=== PATIENT | male | born 1955 | race Caucasian/White ===

== ENCOUNTER 2021-08-31 07:28 | Observation (INO) | payer MEDICARE, MEDICAID ==
[2021-08-31] MEDS ORDERED: Ketorolac 30 MG/ML SDV IVPUSH ONE (08:01)
[2021-08-31] MEDS ORDERED: Ondansetron 4 MG/2 ML SDV IVPUSH ONE (08:01)
[2021-08-31] MEDS: Sodium Chloride 0.9% 10 ML Syringe FLUSH PRN ×5 (08:06→21:56)
--- NOTE | 2021-08-31 08:13 | EDM.PDOC ---
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[facility] and shifted weight to his other leg he then drove to [address] [place] [id number] in [place], pain inc'd to the point that he had to have someone else read the scripture and had to sit down during the sermon pain is from his L hip to his L ankle, most pain is in L hip and and knee altho has not pain with ROM no swell/red/warm, no f/c/d did have n/v in middle of night which has persisted, he thinks it is d/t the pain, he lay on the floor in bathroom during night before walking back to his bed no children, lives with who is at home on hospice for breast CA dx 8y ago, now with meds to back and lung on no regular meds, took ASA x 2 yesterday has had COVID vax Left Leg Pain Score (Numeric/FACES): 8 - Related Data Allergies Allergy/AdvReac Type Severity Reaction Status Date / Time No Known Allergies Allergy Verified 08/31/21 07:38 Home Meds: Home Meds Aspirin 162 mg PO DAILY PRN 08/31/21 [History] Past Medical History HEENT History: Reports: Impaired Vision Cardiovascular History: Reports: Blood Clots/VTE/DVT, Other (See Below) Other Cardiovascular History: DVT LEFT CALF 4-5 YEARS AGO (2020) Respiratory History: Reports: None Gastrointestinal History: Reports: None Genitourinary History: Reports: None Musculoskeletal History: Reports: None Neurological History: Reports: None Psychiatric History: Reports: None Endocrine/Metabolic History: Reports: None Oncologic (Cancer) History: Reports: None Dermatologic History: Reports: None - Past Surgical History Head Surgeries/Procedures: Reports: None HEENT Surgical History: Reports: None Respiratory Surgical History: Reports: None GI Surgical History: Reports: None Male Surgical History: Reports: None Endocrine Surgical History: Reports: None Neurological Surgical History: Reports: None Musculoskeletal Surgical History: Reports: None Oncologic Surgical History: Reports: None Dermatological Surgical History: Reports: None Social & Family History - Tobacco Use Tobacco Use Status *Q: Never Tobacco User - Caffeine Use Caffeine Use: Reports: Coffee - Recreational Drug Use Recreational Drug Use: No Review of Systems - Review of Systems Review Of Systems: See Below Constitutional: Reports: No Symptoms Eyes: Reports: No Symptoms Ears: Reports: No Symptoms Nose: Reports: No Symptoms Mouth/Throat: Reports: No Symptoms Respiratory: Reports: No Symptoms Cardiovascular: Reports: No Symptoms GI/Abdominal: Reports: Nausea, Vomiting Genitourinary: Reports: No Symptoms Musculoskeletal: Reports: Leg Pain Skin: Reports: No Symptoms Neurological: Reports: No Symptoms Psychiatric: Reports: No Symptoms ED EXAM, GENERAL - Physical Exam Exam: See Below Exam Limited By: No Limitations General Appearance: Alert, WD/WN, No Apparent Distress, Other (lying comfortably on his L side, cooperative, normal speech) Eye Exam: Bilateral Eye: EOMI, PERRL Ears: Hearing Grossly Normal Nose: Normal Inspection Throat/Mouth: Normal Inspection, Normal Lips, Normal Voice, No Airway Compromise Head: Atraumatic, Normocephalic Neck: Normal Inspection, Supple, Non-Tender, Full Range of Motion. No: Lymphadenopathy (R), Lymphadenopathy (L) Respiratory/Chest: No Respiratory Distress, Lungs Clear, Normal Breath Sounds, No Accessory Muscle Use Cardiovascular: Regular Rate, Rhythm, No Edema, No Murmur GI/Abdominal: Soft, Non-Tender, No Distention Back Exam: Normal Inspection, Full Range of Motion. No: CVA Tenderness (R), CVA Tenderness (L) Extremities: Normal Inspection, Normal Range of Motion, Non-Tender, No Pedal Edema, Other (no point tender LLE, spontaneous flex/ext left knee/hip without discomfort, no edema or swell b/l, no cords, skin with no red/warm) Neurological: Alert, Oriented, CN II-XII Intact, Normal Cognition, No M otor/Sensory Deficits Psychiatric: Normal Affect, Normal Mood Skin Exam: Warm, Dry, Intact, Normal Color, No Rash Lymphatic: No Adenopathy #1 Interpretation EKG Date: 08/31/21 Time: 08:26 Rate (Beats/Min): 72 P-Wave: Present QRS: Normal ST-T: Normal QT: Normal (LAD -38, baseline artifact, no acute ST/ischemic change) Course - Vital Signs Last Recorded V/S: Last Vital Signs Temp 35.6 C L 08/31/21 07:47 Pulse 68 08/31/21 10:55 Resp 16 08/31/21 10:55 BP 102/59 L 08/31/21 10:55 Pulse Ox 96 08/31/21 10:55 - Orders/Labs/Meds Orders: Active Orders 24 hr Category Date Time Status Sodium Chloride 0.9% [Normal Saline] 1,000 ml Med 08/31/21 08:15 Active IV ASDIRECTED Sodium Chloride 0.9% [Normal Saline] 1,000 ml Med 08/31/21 12:15 Active IV ASDIRECTED Sodium Chloride 0.9% [Saline Flush] Med 08/31/21 08:44 Active 10 ml FLUSH ASDIRECTED PRN EKG 12 Lead [EK] Routine Ther 08/31/21 08:01 Ordered Medication Orders Sodium Chloride (Normal Saline) 1,000 mls @ 999 mls/hr IV ASDIRECTED JEOVANY Last Admin: 08/31/21 08:11 Dose: 999 mls/hr Documented by: DELIA Sodium Chloride (Normal Saline) 1,000 mls @ 999 mls/hr IV ASDIRECTED JEOVANY Last Admin: 08/31/21 12:38 Dose: 999 mls/hr Documented by: DELIA Sodium Chloride (Sodium Chloride 0.9% 10 Ml Syringe) 10 ml FLUSH ASDIRECTED PRN PRN Reason: Keep Vein Open Last Admin: 08/31/21 09:20 Dose: 10 ml Documented by: Admin: 08/31/21 08:12 Dose: 10 ml Documented by: Admin: 08/31/21 08:06 Dose: 10 ml Documented by: DELIA Labs: Laboratory Tests 08/31/21 08/31/21 08/31/21 Range/Units 08:20 08:20 08:22 WBC 8.5 (3.2-10.1) x10-3/uL RBC 4.78 (3.90-5.90) x10(6)uL Hgb 14.7 (12.9-17.7) g/dL Hct 43.4 (38.3-50.1) % MCV 90.8 (80.8-98.7) fL MCH 30.8 (27.0-33.3) pg MCHC 33.9 (28.7-35.3) g/dL RDW 12.9 (12.4-15.0) % Plt Count 210 (117-477) x10(3)uL MPV 8.9 (6.7-11.0) fL Add Manual Diff Yes Neutrophils % (Manual) 85 H (46-82) % Lymphocytes % (Manual) 8 L (13-37) % Monocytes % (Manual) 7 (4-12) % PT 10.6 (9.0-11.1) sec INR 0.98 L (1.00-1.24) APTT 22.7 L (24.4-33.2) SECONDS D-Dimer, Quantitative (0.0-0.59) mg/LFEU Sodium (135-145) mmol/L Potassium (3.5-5.3) mmol/L Chloride (100-110) mmol/L Carbon Dioxide (21-32) mmol/L BUN (7-18) mg/dL Creatinine (0.70-1.30) mg/dL Est Cr Clr Drug Dosing mL/min Estimated GFR (MDRD) (>60) BUN/Creatinine Ratio (9-20) Glucose (80-116) mg/dL Hemoglobin A1c 5.8 H (<5.7) % Calcium (8.6-10.2) mg/dL Total Bilirubin (0.1-1.3) mg/dL AST (5-25) IU/L ALT (12-36) U/L Alkaline Phosphatase (56-112) IU/L Creatine Kinase (60-160) IU/L Troponin I (4.0-60.3) pg/mL C-Reactive Protein (0.5-0.9) mg/dL Total Protein (6.0-8.0) g/dL Albumin (3.2-4.6) g/dL Globulin g/dL Albumin/Globulin Ratio Urine Color (YELLOW) Urine Appearance (CLEAR) Urine pH (5.0-6.5) Ur Specific [place] (1.010-1.025) Urine Protein (NEGATIVE) mg/dL Urine Glucose (UA) (NORMAL) mg/dL Urine Ketones (NEGATIVE) mg/dL Urine Occult Blood (NEGATIVE) Urine Nitrite (NEGATIVE) Urine Bilirubin (NEGATIVE) Urine Urobilinogen (NEGATIVE) mg/dL Ur Leukocyte Esterase (NEGATIVE) Urine RBC (0-5) Urine WBC (0-5) Ur Squamous Epith Cells (NS,R,O) Urine Bacteria (NS) SARS-CoV-2 RNA (GELY) (NEGATIVE) 08/31/21 08/31/21 08/31/21 Range/Units 08:22 08:22 08:22 WBC (3.2-10.1) x10-3/uL RBC (3.90-5.90) x10(6)uL Hgb (12.9-17.7) g/dL Hct (38.3-50.1) % MCV (80.8-98.7) fL MCH (27.0-33.3) pg MCHC (28.7-35.3) g/dL RDW (12.4-15.0) % Plt Count (117-477) x10(3)uL MPV (6.7-11.0) fL Add Manual Diff Neutrophils % (Manual) (46-82) % Lymphocytes % (Manual) (13-37) % Monocytes % (Manual) (4-12) % PT (9.0-11.1) sec INR (1.00-1.24) APTT (24.4-33.2) SECONDS D-Dimer, Quantitative 0.72 H (0.0-0.59) mg/LFEU Sodium 142 (135-145) mmol/L Potassium 4.2 (3.5-5.3) mmol/L Chloride 106 (100-110) mmol/L Carbon Dioxide 25 (21-32) mmol/L BUN 19 H (7-18) mg/dL Creatinine 1.2 (0.70-1.30) mg/dL Est Cr Clr Drug Dosing 65.56 mL/min Estimated GFR (MDRD) > 60 (>60) BUN/Creatinine Ratio 15.8 (9-20) Glucose 176 H (80-116) mg/dL Hemoglobin A1c (<5.7) % Calcium 8.7 (8.6-10.2) mg/dL Total Bilirubin 0.7 (0.1-1.3) mg/dL AST 15 (5-25) IU/L ALT 23 (12-36) U/L Alkaline Phosphatase 46 L (56-112) IU/L Creatine Kinase 81 (60-160) IU/L Troponin I 4.1 (4.0-60.3) pg/mL C-Reactive Protein < 0.2 L (0.5-0.9) mg/dL Total Protein 6.7 (6.0-8.0) g/dL Albumin 3.4 (3.2-4.6) g/dL Globulin 3.3 g/dL Albumin/Globulin Ratio 1.0 Urine Color (YELLOW) Urine Appearance (CLEAR) Urine pH (5.0-6.5) Ur Specific [place] (1.010-1.025) Urine Protein (NEGATIVE) mg/dL Urine Glucose (UA) (NORMAL) mg/dL Urine Ketones (NEGATIVE) mg/dL Urine Occult Blood (NEGATIVE) Urine Nitrite (NEGATIVE) Urine Bilirubin (NEGATIVE) Urine Urobilinogen (NEGATIVE) mg/dL Ur Leukocyte Esterase (NEGATIVE) Urine RBC (0-5) Urine WBC (0-5) Ur Squamous Epith Cells (NS,R,O) Urine Bacteria (NS) SARS-CoV-2 RNA (GELY) (NEGATIVE) 08/31/21 08/31/21 Range/Units 09:28 14:58 WBC (3.2-10.1) x10-3/uL RBC (3.90-5.90) x10(6)uL Hgb (12.9-17.7) g/dL Hct (38.3-50.1) % MCV (80.8-98.7) fL MCH (27.0-33.3) pg MCHC (28.7-35.3) g/dL RDW (12.4-15.0) % Plt Count (117-477) x10(3)uL MPV (6.7-11.0) fL Add Manual Diff Neutrophils % (Manual) (46-82) % Lymphocytes % (Manual) (13-37) % Monocytes % (Manual) (4-12) % PT (9.0-11.1) sec INR (1.00-1.24) APTT (24.4-33.2) SECONDS D-Dimer, Quantitative (0.0-0.59) mg/LFEU Sodium (135-145) mmol/L Potassium (3.5-5.3) mmol/L Chloride (100-110) mmol/L Carbon Dioxide (21-32) mmol/L BUN (7-18) mg/dL Creatinine (0.70-1.30) mg/dL Est Cr Clr Drug Dosing mL/min Estimated GFR (MDRD) (>60) BUN/Creatinine Ratio (9-20) Glucose (80-116) mg/dL Hemoglobin A1c (<5.7) % Calcium (8.6-10.2) mg/dL Total Bilirubin (0.1-1.3) mg/dL AST (5-25) IU/L ALT (12-36) U/L Alkaline Phosphatase (56-112) IU/L Creatine Kinase (60-160) IU/L Troponin I (4.0-60.3) pg/mL C-Reactive Protein (0.5-0.9) mg/dL Total Protein (6.0-8.0) g/dL Albumin (3.2-4.6) g/dL Globulin g/dL Albumin/Globulin Ratio Urine Color Yellow (YELLOW) Urine Appearance Slightly cloudy (CLEAR) Urine pH 6.0 (5.0-6.5) Ur Specific [place] 1.015 (1.010-1.025) Urine Protein Negative (NEGATIVE) mg/dL Urine Glucose (UA) Normal (NORMAL) mg/dL Urine Ketones 50 H (NEGATIVE) mg/dL Urine Occult Blood Trace (NEGATIVE) Urine Nitrite Negative (NEGATIVE) Urine Bilirubin Negative (NEGATIVE) Urine Urobilinogen Normal (NEGATIVE) mg/dL Ur Leukocyte Esterase Negative (NEGATIVE) Urine RBC 0-5 (0-5) Urine WBC 0-5 (0-5) Ur Squamous Epith Cells Rare (NS,R,O) Urine Bacteria Rare H (NS) SARS-CoV-2 RNA (GELY) Negative (NEGATIVE) Meds: Medications Generic Name Dose Route Start Last Admin Trade Name Freq PRN Reason Stop Dose Admin Sodium Chloride 1,000 mls @ 999 mls/hr 08/31/21 08:15 08/31/21 08:11 Normal Saline IV 999 mls/hr ASDIRECTED JEOVANY Administration Sodium Chloride 1,000 mls @ 999 mls/hr 08/31/21 12:15 08/31/21 12:38 Normal Saline IV 999 mls/hr ASDIRECTED JEOVANY Administration Sodium Chloride 10 ml 08/31/21 08:44 08/31/21 09:20 Sodium Chloride 0.9% 10 Ml Syringe FLUSH 10 ml ASDIRECTED PRN Administration Keep Vein Open Discontinued Medications Generic Name Dose Route Start Last Admin Trade Name Cori PRN Reason Stop Dose Admin Sodium Chloride 1,000 mls @ 999 mls/hr 08/31/21 09:15 08/31/21 09:18 Normal Saline IV 08/31/21 10:15 999 mls/hr .BOLUS ONE Administration Iopamidol 150 ml 08/31/21 09:45 08/31/21 10:42 Iopamidol 755 Mg/Ml 150 Ml Bottle IV 08/31/21 09:46 125 ml ONETIME ONE Administration Iopamidol 100 ml 08/31/21 11:37 08/31/21 12:04 Iopamidol 755 Mg/Ml 100 Ml Bottle IV 08/31/21 11:38 100 ml . DIRECTED ONE Administration Ketorolac Tromethamine 30 mg 08/31/21 08:01 08/31/21 08:12 Ketorolac 30 Mg/Ml Sdv IVPUSH 08/31/21 08:02 30 mg ONETIME ONE Administration Metoclopramide HCl 10 mg 08/31/21 09:15 08/31/21 09:20 Metoclopramide 10 Mg/2 Ml Sdv IVPUSH 08/31/21 09:16 10 mg ONETIME ONE Administration Ondansetron HCl 4 mg 08/31/21 08:01 08/31/21 08:12 Ondansetron 4 Mg/2 Ml Sdv IVPUSH 08/31/21 08:02 4 mg ONETIME ONE Administration - Re-Assessments/Exams Free Text/Narrative Re-Assessment/Exam: 08/31/21 14:53 d/w Dr Terrazas who accepted in admission, pt agrees pt states he still has severe nausea he changes position from supine altho did on bed to use urinal (given IV Zofran and Reglan when he first arrived), has been 3 liter NS d/t ketone 50 mg/dl in urine and dye load still has "severe pain" in his LLE altho vessels are "wide open" in lower abd and pelvis per Dr Doherty CTA pelvis with runoff done showing a "definite" blockage at artery in right cath, possibly posterior tibeal artery CTA did show a 8.5 mm stone at L renal pelvis, no h/o stone, pelvic ectasia noted and Dr Doherty said that pt may be having a ball-valve effect, altho pt states he has never had left flank or left lower back pain SLR negative to 75 degrees, no back or posterior pelvic pain or tenderness cause of LLE pain is unknown based in hx/PE/imaging/labs cause of intermittent n/v that is positional is also unknown, relation to LLE pain is unknown as well pt is not a safe d/c as he cannot walk d/t both n/v and pain, additional w/u as needed EKG unremarkable, trop neg glucose 176 c/w adrenergic surge as A1C is 176 pt with mod dehdyraiton with BUN/creat 19/1.2, no comparison CBC neg, segs inc'd c/w pain and n/v as CRP is undetectable 08/31/21 15:06 no anticoagulation meds x 2y pt states a cage like device was placed in his lower abd to catch the blood clots, later removed tech for doppler u/s not here today or tomorrow, here in 2 days (Wed) as needed Departure - Departure Time of Disposition: 16:18 Disposition: Refer to Observation Condition: Good Clinical Impression: Nausea and vomiting, Left leg pain, Dehydration, Ketonuria, Renal insufficiency, H/O deep venous thrombosis, Left nephrolithiasis, Peripheral vascular disease of lower extremity - Discharge Information *PRESCRIPTION DRUG MONITORING PROGRAM REVIEWED*: Not Applicable *COPY OF PRESCRIPTION DRUG MONITORING REPORT IN PATIENT [place]: Not Applicable Sepsis Event Note (ED) - Evaluation Sepsis Screening Result: No Definite Risk - Focused Exam Vital Signs: Vital Signs Temp Pulse Resp BP Pulse Ox 08/31/21 10:55 68 16 102/59 L 96 08/31/21 08:46 73 16 107/58 L 97 08/31/21 07:47 35.6 C L 93 16 116/66 93 L - My Orders Last 24 Hours: My Active Orders 08/31/21 08:01 EKG 12 Lead [EK] Routine 08/31/21 08:15 Sodium Chloride 0.9% [Normal Saline] 1,000 ml IV ASDIRECTED 08/31/21 08:44 Sodium Chloride 0.9% [Saline Flush] 10 ml FLUSH ASDIRECTED PRN 08/31/21 12:15 Sodium Chloride 0.9% [Normal Saline] 1,000 ml IV ASDIRECTED - Assessment/Plan Last 24 Hours: My Active Orders 08/31/21 08:01 EKG 12 Lead [EK] Routine 08/31/21 08:15 Sodium Chloride 0.9% [Normal Saline] 1,000 ml IV ASDIRECTED 08/31/21 08:44 Sodium Chloride 0.9% [Saline Flush] 10 ml FLUSH ASDIRECTED PRN 08/31/21 12:15 Sodium Chloride 0.9% [Normal Saline] 1,000 ml IV ASDIRECTED
[2021-08-31] MEDS ORDERED: Sodium Chloride 0.9% 1,000 ML IV SCH ×2 (08:15→12:15)
[2021-08-31] MEDS ORDERED: Metoclopramide 10 MG/2 ML SDV IVPUSH ONE (09:15)
[2021-08-31] MEDS ORDERED: Sodium Chloride 0.9% 1,000 ML IV ONE (09:15)
[2021-08-31 09:37] LABS: HEMOGLOBIN A1C 5.8 % (<5.7)
[2021-08-31] MEDS ORDERED: Iopamidol 755 MG/ML 150 ML Bottle IV ONE (09:45)
[2021-08-31] MEDS ORDERED: Iopamidol 755 Mg/ML 100 ML Bottle IV ONE (11:37)
--- NOTE | 2021-08-31 13:53 | CT ---
INDICATION: Severe pain left inguinal area down to left ankle. D-dimer increase mild at 0.7. Question aneurysm or DVT. COMPUTERIZED TOMOGRAPHY CTA RUNOFF ABDOMEN, PELVIS AND LOWER EXTREMITIES: Spiral 2.5 mm axial sections were obtained through the abdomen, pelvis and lower extremities with 125 mL Isovue-370 at 4 mL/second with sagittal and coronal reconstructions 08/31/21 and compared with 01/02/16. On that previous examination, there was deep venous thrombosis of the common femoral through the popliteal mid portion. TOTAL EXAM DLP: 1842.97 mGy/cm. The lower lung crandall and pleural spaces visualized showed evidence of some minimal patchy infiltration at the right lung base in the right lower lobe. A small fixed hiatal hernia was noted. Calcifications are noted in the abdominal aorta, iliac and femoral arteries. There is a fusiform dilatation of the distal abdominal aorta to a maximum of approximately 28 mm - just below aneurysmic dilatation. Calcifications are also noted in the distal superficial femoral artery in the mid to distal thigh area. On the right, there are a few areas that are moderate, with relatively minimal narrowing on the left. There does appear to be some delay in flow on the left visualized at the level of the calf, which appears to be on the basis of the previously mentioned areas of moderate stenosis. No gross stenosis was identified. On this initial run, the venous structures were not visualized. Posteriorly in the left lower calf, there is a focal area of fatty decreased density, most likely representing a lipoma, measuring approximately 15 x 18 mm on axial image 467 of series 2 and coronal image number 255 of series 605. Maximum diameter of this lesion was approximately 30 mm within posterior musculature. Most likely, this represents a lipoma. Additional imaging will be obtained to further evaluate the venous runoff. The liver is low in density suggesting a fatty liver. It did not appear grossly enlarged with no definite focal lesion seen. The gallbladder showed evidence of a phrygian cap, but otherwise unremarkable. The adrenal glands and, for the most part, the right kidney appeared normal. There may be some minimal renal cortical scarring of the right kidney. However, the left kidney showed evidence of a calculus within the left renal pelvis. It does not appear to be obstructive at this time, but may have been ball-valving in that area, producing obstruction at the ureteropelvic junction since the renal pelvis on the left is dilated and there is hydronephrosis in general of the left kidney. There is some fat stranding minimally at the renal pelvis on the left, which could be on the basis of obstruction intermittently. The ureter distal to that area appears to be normal in caliber, however, with no ureteral calculi identified and no calculi noted in the urinary bladder. The prostate is enlarged, measuring 62 x 50 x 59 mm in transverse, craniocaudad and AP diameters. There is some minimal calcification within it. The urinary bladder was unremarkable. No retroperitoneal mass was seen. Retroperitoneal lymphadenopathy is mild and nonspecific. The spleen and pancreas appeared normal. The appendix was normal in appearance, visualized on axial images 111 through 125. No evidence of free air or bowel obstruction was identified. There was noted a ventral hernia at the level of the upper pelvis - just above the umbilicus, which measured 41 x 63 mm in AP and transverse diameters with an abdominal opening of 10 mm, but including only fat - no bowel loops were included. No other ventral or significant inguinal hernias were identified. No additional organomegaly, mass lesions or free fluid collections were identified in the abdomen or pelvis. SECOND PORTION OF THE EXAMINATION TECHNIQUE: The second portion of the examination included injections of 100 cc Isovue-370 at 4 mL/second with axial and sagittal reconstructions, initially at approximately the total delay of 40 seconds after contrast reached the aorta for the pelvis and to the knee area and then approximately 120 second delay set of images of the knees to distal runoff with an additional further delayed set of images, approximately 180 second total delay. Visualization of the venous structures was less than ideal, but did show essentially normal flow throughout the venous structures on the left. At the level of the knee and just above, the deep femoral vein on the right is not opacified. This may be on the basis of relative delay in contrast flow arterially on the right. When clinically possible, duplex ultrasound of the lower extremity veins is recommended for further evaluation. IMPRESSION: 1. No gross deep venous thrombosis identified at this time, but it is difficult to entirely exclude. I would strongly recommend duplex ultrasound of lower extremities, when clinically possible. 2. Fatty liver. 3. ASD. 4. Hydronephrosis left kidney with a calculus of moderate size to large size in the renal pelvis - nonobstructive at this time, which may be ball-valving intermittently producing the appearance of pyelocaliectasis on the left. 5. Ventral hernia, measuring a maximum of 63 mm, which includes only fat. 6. Prostatic enlargement. 7. There appears to be multiple areas of minimal narrowing in the superficial femoral arteries in the thigh, which on the right may be slightly more prominent and producing a degree of delay in arterial flow. 8. Right posterior tibial artery shows markedly decreased blood flow several centimeters below the knee, especially when compared with the left. A significant stenosis should be present in the proximal calf level of this vessel. Report was called to Dr. Salas at 1312 hours, 08/31/21. [facility]
[2021-08-31] MEDS ORDERED: Acetaminophen 325 MG Tab PO PRN (16:16)
[2021-08-31] MEDS ORDERED: Promethazine 25 MG Tab PO PRN (16:16)
[2021-08-31] MEDS ORDERED: Morphine 2 MG/ML SYRINGE IVPUSH PRN (16:16)
--- NOTE | 2021-08-31 16:49 | PCM.HP.2 ---
H&P History of Present Illness - General Date of Service: 08/31/21 Admit Problem/Dx: Admission Diagnosis/Problem Admission Diagnosis/Problem Pain Source of Information: Patient, Provider History Limitations: Reports: No Limitations - History of Present Illness Initial Comments - Free Text/Narative: Pt came by EMS with LLE x 24h, unable to bear weight. No known injury. History of DVT. 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 He states the pain is deep, from left hip to left ankle. No increased swelling. No redness. No pain with range of motion but only with weight bearing. No fevers, chills, cough, shortness of breath, abdominal pain, diarrhea, dysuria, hematuria or frequency. He had nausea & vomiting in middle of night, feels more secondary to pain, has when he stood up and also when he laid flat for CTA. He lives with who is at home on hospice for breast CA dx 8y ago, now with mets to back and lung. He is on no regular meds, took ASA x 2 yesterday for pain. History of DVT few years ago, had IVC filter removed about 2 years ago. In ER: had CTA with run off as no Doppler ultrasound available, had decreased flow in right superficial femoral artery and right posterior tibial artery, 28 mm dilatation of abdominal aorta, see report for further details. D Dimer was 0.7. WBC normal. Cr 1.2. EKG NSR 72, left axis deviation, no ST-T wave changes. Had incidental finding of nonobstructive kidney stone on left. Left Leg Pain Score (Numeric/FACES): 8 - Related Data Allergies/Adverse Reactions: Allergies Allergy/AdvReac Type Severity Reaction Status Date / Time No Known Allergies Allergy Verified 08/31/21 07:38 Home Medications: Home Meds Aspirin 162 mg PO DAILY PRN 08/31/21 [History] Past Medical History HEENT History: Reports: Impaired Vision Cardiovascular History: Reports: Blood Clots/VTE/DVT, Other (See Below) Other Cardiovascular History: DVT LEFT CALF 4-5 YEARS AGO (2020) Respiratory History: Reports: None Gastrointestinal History: Reports: None Genitourinary History: Reports: None Musculoskeletal History: Reports: None Neurological History: Reports: None Psychiatric History: Reports: None Endocrine/Metabolic History: Reports: None Oncologic (Cancer) History: Reports: None Dermatologic History: Reports: None - Past Surgical History Head Surgeries/Procedures: Reports: None HEENT Surgical History: Reports: None Respiratory Surgical History: Reports: None GI Surgical History: Reports: None Male Surgical History: Reports: None Endocrine Surgical History: Reports: None Neurological Surgical History: Reports: None Musculoskeletal Surgical History: Reports: None Oncologic Surgical History: Reports: None Dermatological Surgical History: Reports: None Social & Family History - Tobacco Use Tobacco Use Status *Q: Never Tobacco User - Caffeine Use Caffeine Use: Reports: Coffee - Recreational Drug Use Recreational Drug Use: No H&P Review of Systems - Review of Systems: Review Of Systems: Comprehensive ROS is negative, except as noted in HPI. Exam - Exam Exam: See Below - Vital Signs Vital Signs: Last Vital Signs Temp 96.1 F L 08/31/21 07:47 Pulse 68 08/31/21 10:55 Resp 16 08/31/21 10:55 BP 102/59 L 08/31/21 10:55 Pulse Ox 96 08/31/21 10:55 Weight: 243 lb - Exam General: Alert, Oriented, Cooperative. No: Mild Distress HEENT: PERRLA, Conjunctiva Clear, EOMI, Hearing Intact, Mucosa Moist & [place], Glasses Lungs: Clear to Auscultation, Normal Respiratory Effort Cardiovascular: Regular Rate, Regular Rhythm GI/Abdominal Exam: Normal Bowel Sounds, Soft, Non-Tender, No Distention, Pelvis Stable (Male) Exam: Deferred Rectal (Males) Exam: Deferred Back Exam: Normal Inspection, Full Range of Motion. No: CVA Tenderness (R), CVA Tenderness (L) Extremities: Normal Inspection, Normal Range of Motion, No Pedal Edema, Normal Capillary Refill, Leg Pain (no able to reproduce), Other (straight leg raise negative B). No: Joint Swelling, Rizwan's Sign, Increased Warmth, Redness Peripheral Pulses: 1+: Posterior Tibial (L), Posterior Tibial (R), Dorsalis Pedis (L), Dorsalis Pedis (R), 2+: Radial (L), Radial (R) Skin: Warm, Dry, Intact Neurological: Cranial Nerves Intact, Strength Equal Bilateral, Normal Speech, Normal Tone, Sensation Intact - Patient Data Lab Results Last 24 hrs: Laboratory Results - last 24 hr 08/31/21 08/31/21 08/31/21 Range/Units 08:20 08:20 08:22 WBC 8.5 (3.2-10.1) x10-3/uL RBC 4.78 (3.90-5.90) x10(6)uL Hgb 14.7 (12.9-17.7) g/dL Hct 43.4 (38.3-50.1) % MCV 90.8 (80.8-98.7) fL MCH 30.8 (27.0-33.3) pg MCHC 33.9 (28.7-35.3) g/dL RDW 12.9 (12.4-15.0) % Plt Count 210 (117-477) x10(3)uL MPV 8.9 (6.7-11.0) fL Add Manual Diff Yes Neutrophils % (Manual) 85 H (46-82) % Lymphocytes % (Manual) 8 L (13-37) % Monocytes % (Manual) 7 (4-12) % PT 10.6 (9.0-11.1) sec INR 0.98 L (1.00-1.24) APTT 22.7 L (24.4-33.2) SECONDS D-Dimer, Quantitative (0.0-0.59) mg/LFEU Sodium (135-145) mmol/L Potassium (3.5-5.3) mmol/L Chloride (100-110) mmol/L Carbon Dioxide (21-32) mmol/L BUN (7-18) mg/dL Creatinine (0.70-1.30) mg/dL Est Cr Clr Drug Dosing mL/min Estimated GFR (MDRD) (>60) BUN/Creatinine Ratio (9-20) Glucose (80-116) mg/dL Hemoglobin A1c 5.8 H (<5.7) % Calcium (8.6-10.2) mg/dL Total Bilirubin (0.1-1.3) mg/dL AST (5-25) IU/L ALT (12-36) U/L Alkaline Phosphatase (56-112) IU/L Creatine Kinase (60-160) IU/L Troponin I (4.0-60.3) pg/mL C-Reactive Protein (0.5-0.9) mg/dL Total Protein (6.0-8.0) g/dL Albumin (3.2-4.6) g/dL Globulin g/dL Albumin/Globulin Ratio Urine Color (YELLOW) Urine Appearance (CLEAR) Urine pH (5.0-6.5) Ur Specific [place] (1.010-1.025) Urine Protein (NEGATIVE) mg/dL Urine Glucose (UA) (NORMAL) mg/dL Urine Ketones (NEGATIVE) mg/dL Urine Occult Blood (NEGATIVE) Urine Nitrite (NEGATIVE) Urine Bilirubin (NEGATIVE) Urine Urobilinogen (NEGATIVE) mg/dL Ur Leukocyte Esterase (NEGATIVE) Urine RBC (0-5) Urine WBC (0-5) Ur Squamous Epith Cells (NS,R,O) Urine Bacteria (NS) SARS-CoV-2 RNA (GELY) (NEGATIVE) 08/31/21 08/31/21 08/31/21 Range/Units 08:22 08:22 08:22 WBC (3.2-10.1) x10-3/uL RBC (3.90-5.90) x10(6)uL Hgb (12.9-17.7) g/dL Hct (38.3-50.1) % MCV (80.8-98.7) fL MCH (27.0-33.3) pg MCHC (28.7-35.3) g/dL RDW (12.4-15.0) % Plt Count (117-477) x10(3)uL MPV (6.7-11.0) fL Add Manual Diff Neutrophils % (Manual) (46-82) % Lymphocytes % (Manual) (13-37) % Monocytes % (Manual) (4-12) % PT (9.0-11.1) sec INR (1.00-1.24) APTT (24.4-33.2) SECONDS D-Dimer, Quantitative 0.72 H (0.0-0.59) mg/LFEU Sodium 142 (135-145) mmol/L Potassium 4.2 (3.5-5.3) mmol/L Chloride 106 (100-110) mmol/L Carbon Dioxide 25 (21-32) mmol/L BUN 19 H (7-18) mg/dL Creatinine 1.2 (0.70-1.30) mg/dL Est Cr Clr Drug Dosing 65.56 mL/min Estimated GFR (MDRD) > 60 (>60) BUN/Creatinine Ratio 15.8 (9-20) Glucose 176 H (80-116) mg/dL Hemoglobin A1c (<5.7) % Calcium 8.7 (8.6-10.2) mg/dL Total Bilirubin 0.7 (0.1-1.3) mg/dL AST 15 (5-25) IU/L ALT 23 (12-36) U/L Alkaline Phosphatase 46 L (56-112) IU/L Creatine Kinase 81 (60-160) IU/L Troponin I 4.1 (4.0-60.3) pg/mL C-Reactive Protein < 0.2 L (0.5-0.9) mg/dL Total Protein 6.7 (6.0-8.0) g/dL Albumin 3.4 (3.2-4.6) g/dL Globulin 3.3 g/dL Albumin/Globulin Ratio 1.0 Urine Color (YELLOW) Urine Appearance (CLEAR) Urine pH (5.0-6.5) Ur Specific [place] (1.010-1.025) Urine Protein (NEGATIVE) mg/dL Urine Glucose (UA) (NORMAL) mg/dL Urine Ketones (NEGATIVE) mg/dL Urine Occult Blood (NEGATIVE) Urine Nitrite (NEGATIVE) Urine Bilirubin (NEGATIVE) Urine Urobilinogen (NEGATIVE) mg/dL Ur Leukocyte Esterase (NEGATIVE) Urine RBC (0-5) Urine WBC (0-5) Ur Squamous Epith Cells (NS,R,O) Urine Bacteria (NS) SARS-CoV-2 RNA (GELY) (NEGATIVE) 08/31/21 08/31/21 Range/Units 09:28 14:58 WBC (3.2-10.1) x10-3/uL RBC (3.90-5.90) x10(6)uL Hgb (12.9-17.7) g/dL Hct (38.3-50.1) % MCV (80.8-98.7) fL MCH (27.0-33.3) pg MCHC (28.7-35.3) g/dL RDW (12.4-15.0) % Plt Count (117-477) x10(3)uL MPV (6.7-11.0) fL Add Manual Diff Neutrophils % (Manual) (46-82) % Lymphocytes % (Manual) (13-37) % Monocytes % (Manual) (4-12) % PT (9.0-11.1) sec INR (1.00-1.24) APTT (24.4-33.2) SECONDS D-Dimer, Quantitative (0.0-0.59) mg/LFEU Sodium (135-145) mmol/L Potassium (3.5-5.3) mmol/L Chloride (100-110) mmol/L Carbon Dioxide (21-32) mmol/L BUN (7-18) mg/dL Creatinine (0.70-1.30) mg/dL Est Cr Clr Drug Dosing mL/min Estimated GFR (MDRD) (>60) BUN/Creatinine Ratio (9-20) Glucose (80-116) mg/dL Hemoglobin A1c (<5.7) % Calcium (8.6-10.2) mg/dL Total Bilirubin (0.1-1.3) mg/dL AST (5-25) IU/L ALT (12-36) U/L Alkaline Phosphatase (56-112) IU/L Creatine Kinase (60-160) IU/L Troponin I (4.0-60.3) pg/mL C-Reactive Protein (0.5-0.9) mg/dL Total Protein (6.0-8.0) g/dL Albumin (3.2-4.6) g/dL Globulin g/dL Albumin/Globulin Ratio Urine Color Yellow (YELLOW) Urine Appearance Slightly cloudy (CLEAR) Urine pH 6.0 (5.0-6.5) Ur Specific [place] 1.015 (1.010-1.025) Urine Protein Negative (NEGATIVE) mg/dL Urine Glucose (UA) Normal (NORMAL) mg/dL Urine Ketones 50 H (NEGATIVE) mg/dL Urine Occult Blood Trace (NEGATIVE) Urine Nitrite Negative (NEGATIVE) Urine Bilirubin Negative (NEGATIVE) Urine Urobilinogen Normal (NEGATIVE) mg/dL Ur Leukocyte Esterase Negative (NEGATIVE) Urine RBC 0-5 (0-5) Urine WBC 0-5 (0-5) Ur Squamous Epith Cells Rare (NS,R,O) Urine Bacteria Rare H (NS) SARS-CoV-2 RNA (GELY) Negative (NEGATIVE) Result Diagrams: 08/31/21 08:22 08/31/21 08:22 Sepsis Event Note - Evaluation Sepsis Screening Result: No Definite Risk - Focused Exam Vital Signs: Vital Signs Temp Pulse Resp BP Pulse Ox 08/31/21 10:55 68 16 102/59 L 96 08/31/21 08:46 73 16 107/58 L 97 08/31/21 07:47 96.1 F L 93 16 116/66 93 L *Q Meaningful Use (ADM) - VTE Risk Assess *Q Each Risk Factor Represents 1 Point: None Total Score 1 Point Risk Factors: 0 Each Risk Factor Represents 2 Points: Age 60 - 74 Years Total Score 2 Point Risk Factors: 2 Each Risk Factor Represents 3 Points: History of DVT/PE Total Score 3 Point Risk Factors: 3 Each Risk Factor Represents 5 Points: None Total Score 5 Point Risk Factors: 0 Venous Thromboembolism Risk Factor Score *Q: 5 - Problem List (1) Left leg pain SNOMED Code(s): 150998161 ICD Code: M79.605 - PAIN IN LEFT LEG Status: Acute Current Visit: Yes (2) Nausea and vomiting SNOMED Code(s): 57707039 ICD Code: R11.2 - NAUSEA WITH VOMITING, UNSPECIFIED Status: Acute Current Visit: Yes (3) Ketonuria SNOMED Code(s): 752825152 ICD Code: R82.4 - ACETONURIA Status: Acute Current Visit: Yes (4) Peripheral vascular disease of lower extremity SNOMED Code(s): 466192671 ICD Code: I73.9 - PERIPHERAL VASCULAR DISEASE, UNSPECIFIED Status: Acute Current Visit: Yes (5) Left nephrolithiasis SNOMED Code(s): 62024257 ICD Code: N20.0 - CALCULUS OF KIDNEY Status: Acute Current Visit: Yes (6) H/O deep venous thrombosis SNOMED Code(s): 688106602 ICD Code: Z86.718 - PERSONAL HISTORY OF OTHER VENOUS THROMBOSIS AND EMBOLISM Status: Chronic Current Visit: Yes Problem List Initiated/Reviewed/Updated: Yes Orders Last 24hrs: Active Orders 24 hr Category Date Time Status Patient Status [ADT] Routine ADT 08/31/21 16:16 Active Oxygen Therapy [RC] PRN Care 08/31/21 16:16 Active Up With Assistance [RC] ASDIRECTED Care 08/31/21 16:16 Active Up to Chair [RC] ASDIRECTED Care 08/31/21 16:16 Active VTE/DVT Education [RC] Per Unit Routine Care 08/31/21 16:16 Active Vital Signs [RC] Q4H Care 08/31/21 16:16 Active PT Evaluation and Treatment [CONS] Routine Cons 08/31/21 16:16 Active Clear Liquid Diet [DIET] Diet 08/31/21 Dinner Active Acetaminophen [TylenoL] Med 08/31/21 16:16 Active 650 mg PO Q4H PRN Ketorolac [Toradol] Med 08/31/21 16:16 Active 30 mg IVPUSH Q6H PRN Morphine Med 08/31/21 16:16 Active 2 mg IVPUSH Q2H PRN Ondansetron [Zofran] Med 08/31/21 16:16 Active 4 mg IVPUSH Q4H PRN Promethazine [Phenergan] Med 08/31/21 16:16 Active 25 mg PO Q6H PRN Sodium Chloride 0.9% [Normal Saline] 1,000 ml Med 08/31/21 08:15 Active IV ASDIRECTED Sodium Chloride 0.9% [Normal Saline] 1,000 ml Med 08/31/21 12:15 Active IV ASDIRECTED Sodium Chloride 0.9% [Saline Flush] Med 08/31/21 08:44 Active 10 ml FLUSH ASDIRECTED PRN Resuscitation Status Routine Resus Stat 08/31/21 16:16 Ordered EKG 12 Lead [EK] Routine Ther 08/31/21 08:01 Ordered Medication Orders Acetaminophen (Acetaminophen 325 Mg Tab) 650 mg PO Q4H PRN PRN Reason: Pain (Mild 1-3)/fever Sodium Chloride (Normal Saline) 1,000 mls @ 999 mls/hr IV ASDIRECTED [facility] Last Admin: 08/31/21 08:11 Dose: 999 mls/hr Documented by: DELIA Sodium Chloride (Normal Saline) 1,000 mls @ 999 mls/hr IV ASDIRECTED [facility] Last Admin: 08/31/21 12:38 Dose: 999 mls/hr Documented by: DELIA Ketorolac Tromethamine (Ketorolac 30 Mg/Ml Sdv) 30 mg IVPUSH Q6H PRN PRN Reason: Pain (moderate 4-6) Morphine Sulfate (Morphine 2 Mg/Ml Syringe) 2 mg IVPUSH Q2H PRN PRN Reason: Pain (severe 7-10) Ondansetron HCl (Ondansetron 4 Mg/2 Ml Sdv) 4 mg IVPUSH Q4H PRN PRN Reason: Nausea/Vomiting Promethazine HCl (Promethazine 25 Mg Tab) 25 mg PO Q6H PRN PRN Reason: nausea, able to take PO Sodium Chloride (Sodium Chloride 0.9% 10 Ml Syringe) 10 ml FLUSH ASDIRECTED PRN PRN Reason: Keep Vein Open Last Admin: 08/31/21 09:20 Dose: 10 ml Documented by: Admin: 08/31/21 08:12 Dose: 10 ml Documented by: Admin: 08/31/21 08:06 Dose: 10 ml Documented by: DELIA Assessment/Plan Comment:: 1. Admit for observation for intractable left leg pain, nausea/vomiting. 2. Intractable leg pain: Toradol 30 mg IV q6h as needed. Acetaminophen 650 mg po q6h, Morphine 2 mg IV q2h as needed breakthrough pain. Will discuss in am with radiology about MRI lumbar spine & left lower extremity, he does not have known injury describes as deep pain, straight leg raises are negative, no radicular symptoms. Doppler ultrasound not available until wed. PT evaluate & treat. 3. Nausea/vomiting/ketonuria: likely secondary to pain, received 3 liters NS bolus in ER. Continue NS at 125 ml/hr. 4. Diet: Clear liquids. 5. Activity: up with assistance & to chair. 6. DVT prophylaxis: Lovenox 40 mg SQ daily. 7. CODE STATUS: FULL. 8. Discharge planning: anticipate 48 hours for pain management and further workup to source of leg pain. Anticipate discharge to home. - Mortality Measure Prognosis:: Good
[2021-08-31] MEDS ORDERED: Enoxaparin 40 MG/0.4 ML Syringe SUBCUT SCH (17:30)
[2021-08-31] MEDS: Ketorolac 30 MG/ML SDV IVPUSH PRN (21:50)
[2021-08-31] MEDS: Ondansetron 4 MG/2 ML SDV IVPUSH PRN (21:54)
[2021-09-01] MEDS: Ketorolac 30 MG/ML SDV IVPUSH PRN ×5 (07:49→21:26)
[2021-09-01] MEDS: Ondansetron 4 MG/2 ML SDV IVPUSH PRN ×2 (07:49→13:25)
[2021-09-01] MEDS: Sodium Chloride 0.9% 10 ML Syringe FLUSH PRN ×3 (07:49→21:28)
[2021-09-01] MEDS ORDERED: Diazepam 5 MG Tab PO ONE (11:00)
--- NOTE | 2021-09-01 14:40 | PCM.PN ---
- General Info Date of Service: 09/01/21 Subjective Update: Rylan states he has not had emesis since coming to floor, tolerated clear liquids. States pain is now more located to left ankle but deep, feels better to lay on r ight side. No diarrhea, denies any back pain. - Patient Data Vitals - Most Recent: Last Vital Signs Temp 98.0 F 09/01/21 07:35 Pulse 59 L 09/01/21 07:35 Resp 18 09/01/21 07:35 BP 102/55 L 09/01/21 07:35 Pulse Ox 94 L 09/01/21 07:35 Weight - Most Recent: 244 lb Lab Results Last 24 Hours: Laboratory Results - last 24 hr 08/31/21 Range/Units 14:58 SARS-CoV-2 RNA (GELY) Negative (NEGATIVE) Med Orders - Current: Current Medications Acetaminophen (Acetaminophen 325 Mg Tab) 650 mg PO Q4H PRN PRN Reason: Pain (Mild 1-3)/fever Enoxaparin Sodium (Enoxaparin 40 Mg/0.4 Ml Syringe) 40 mg SUBCUT Q24H [facility] Sodium Chloride (Normal Saline) 1,000 mls @ 999 mls/hr IV ASDIRECTED [facility] Last Admin: 08/31/21 08:11 Dose: 999 mls/hr Documented by: Sodium Chloride (Normal Saline) 1,000 mls @ 999 mls/hr IV ASDIRECTED [facility] Last Admin: 08/31/21 12:38 Dose: 999 mls/hr Documented by: Ketorolac Tromethamine (Ketorolac 30 Mg/Ml Sdv) 30 mg IVPUSH Q6H PRN PRN Reason: Pain (moderate 4-6) Last Admin: 09/01/21 13:27 Dose: 30 mg Documented by: Morphine Sulfate (Morphine 2 Mg/Ml Syringe) 2 mg IVPUSH Q2H PRN PRN Reason: Pain (severe 7-10) Ondansetron HCl (Ondansetron 4 Mg/2 Ml Sdv) 4 mg IVPUSH Q4H PRN PRN Reason: Nausea/Vomiting Last Admin: 09/01/21 13:25 Dose: 4 mg Documented by: Promethazine HCl (Promethazine 25 Mg Tab) 25 mg PO Q6H PRN PRN Reason: nausea, able to take PO Sodium Chloride (Sodium Chloride 0.9% 10 Ml Syringe) 10 ml FLUSH ASDIRECTED PRN PRN Reason: Keep Vein Open Last Admin: 09/01/21 13:25 Dose: 10 ml Documented by: Discontinued Medications Diazepam (Diazepam 5 Mg Tab) 5 mg PO ONETIME ONE Stop: 09/01/21 11:01 Last Admin: 09/01/21 10:49 Dose: 5 mg Documented by: Enoxaparin Sodium (Enoxaparin 40 Mg/0.4 Ml Syringe) 40 mg SUBCUT DAILY [facility] Last Admin: 08/31/21 17:43 Dose: 40 mg Documented by: Sodium Chloride (Normal Saline) 1,000 mls @ 999 mls/hr IV .BOLUS ONE Stop: 08/31/21 10:15 Last Admin: 08/31/21 09:18 Dose: 999 mls/hr Documented by: Iopamidol (Iopamidol 755 Mg/Ml 150 Ml Bottle) 150 ml IV ONETIME ONE Stop: 08/31/21 09:46 Last Admin: 08/31/21 10:42 Dose: 125 ml Documented by: Iopamidol (Iopamidol 755 Mg/Ml 100 Ml Bottle) 100 ml IV . DIRECTED ONE Stop: 08/31/21 11:38 Last Admin: 08/31/21 12:04 Dose: 100 ml Documented by: Ketorolac Tromethamine (Ketorolac 30 Mg/Ml Sdv) 30 mg IVPUSH ONETIME ONE Stop: 08/31/21 08:02 Last Admin: 08/31/21 08:12 Dose: 30 mg Documented by: Metoclopramide HCl (Metoclopramide 10 Mg/2 Ml Sdv) 10 mg IVPUSH ONETIME ONE Stop: 08/31/21 09:16 Last Admin: 08/31/21 09:20 Dose: 10 mg Documented by: Ondansetron HCl (Ondansetron 4 Mg/2 Ml Sdv) 4 mg IVPUSH ONETIME ONE Stop: 08/31/21 08:02 Last Admin: 08/31/21 08:12 Dose: 4 mg Documented by: - Exam General: Alert, Oriented, Cooperative Lungs: Clear to Auscultation, Normal Respiratory Effort Cardiovascular: Regular Rate, Regular Rhythm GI/Abdominal Exam: Normal Bowel Sounds, Soft, Non-Tender, No Distention, Pelvis Stable Extremities: Normal Inspection, Normal Range of Motion, No Pedal Edema, Normal Capillary Refill, Leg Pain (NT over left ankle.) Peripheral Pulses: 1+: Posterior Tibial (L), Posterior Tibial (R), Dorsalis Pedis (L), Dorsalis Pedis (R), 2+: Radial (L), Radial (R) Skin: Warm, Dry, Intact. No: Ecchymosis - Patient Data Lab Results Last 24 hrs: Laboratory Results - last 24 hr 08/31/21 Range/Units 14:58 SARS-CoV-2 RNA (GELY) Negative (NEGATIVE) Result Diagrams: 08/31/21 08:22 08/31/21 08:22 Sepsis Event Note - Evaluation Sepsis Screening Result: No Definite Risk - Focused Exam Vital Signs: Vital Signs Temp Temp Pulse Resp BP Pulse Ox 09/01/21 07:35 98.0 F 59 L 18 102/55 L 94 L 09/01/21 03:05 98.1 F 60 18 117/69 95 - Problem List & Annotations (1) Left leg pain SNOMED Code(s): 516747521 Code(s): M79.605 - PAIN IN LEFT LEG Status: Acute Current Visit: Yes (2) Nausea and vomiting SNOMED Code(s): 90408850 Code(s): R11.2 - NAUSEA WITH VOMITING, UNSPECIFIED Status: Acute Current Visit: Yes (3) Ketonuria SNOMED Code(s): 831154532 Code(s): R82.4 - ACETONURIA Status: Acute Current Visit: Yes (4) Peripheral vascular disease of lower extremity SNOMED Code(s): 430922188 Code(s): I73.9 - PERIPHERAL VASCULAR DISEASE, UNSPECIFIED Status: Acute Current Visit: Yes (5) Left nephrolithiasis SNOMED Code(s): 14181836 Code(s): N20.0 - CALCULUS OF KIDNEY Status: Acute Current Visit: Yes (6) H/O deep venous thrombosis SNOMED Code(s): 462255056 Code(s): Z86.718 - PERSONAL HISTORY OF OTHER VENOUS THROMBOSIS AND EMBOLISM Status: Chronic Current Visit: Yes - Problem List Review Problem List Initiated/Reviewed/Updated: Yes - My Orders Last 24 Hours: My Active Orders 08/31/21 Dinner Clear Liquid Diet [DIET] 08/31/21 16:16 Patient Status [ADT] Routine Oxygen Therapy [RC] PRN Up With Assistance [RC] ASDIRECTED Up to Chair [RC] ASDIRECTED VTE/DVT Education [RC] Per Unit Routine Vital Signs [RC] Q4H PT Evaluation and Treatment [CONS] Routine Acetaminophen [TylenoL] 650 mg PO Q4H PRN Ketorolac [Toradol] 30 mg IVPUSH Q6H PRN Morphine 2 mg IVPUSH Q2H PRN Ondansetron [Zofran] 4 mg IVPUSH Q4H PRN Promethazine [Phenergan] 25 mg PO Q6H PRN Resuscitation Status Routine 09/01/21 08:42 Lumbar Spine Comp wo Cont [MR] Routine 09/01/21 Lunch Soft Diet [DIET] 09/01/21 18:00 Enoxaparin [Lovenox] 40 mg SUBCUT Q24H 09/02/21 08:00 VL Duplex Lwr Ext Veins Comp [US] Routine - Plan Plan:: 1. Intractable leg pain: Toradol 30 mg IV q6h as needed. Acetaminophen 650 mg po q6h, Morphine 2 mg IV q2h as needed breakthrough pain. MRI lumbar spine today, due to inability to bear weight, position of comfort: right side, he does not have known injury describes as deep pain, straight leg raises are negative, no radicular symptoms. Doppler ultrasound Tomorrow. PT evaluate & treat. 2. Nausea/vomiting/ketonuria: 3 L bolus in ER, drank well overnight, saline locked last night. 3. Diet: advance to soft 4. Discharge planning: anticipate 24 hours for pain management and further workup to source of leg pain. Anticipate discharge to home. 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
[2021-09-01] MEDS ORDERED: Enoxaparin 40 MG/0.4 ML Syringe SUBCUT SCH (18:00)
[2021-09-02] MEDS: Ketorolac 30 MG/ML SDV IVPUSH PRN (09:20)
[2021-09-02 10:06] VITALS: BP 109/71; PULSE 65
[2021-09-02] MEDS: Ondansetron 4 MG/2 ML SDV IVPUSH PRN (12:56)
[2021-09-02] MEDS ORDERED: Ibuprofen 400 MG Tab PO ONE (13:15)
--- NOTE | 2021-09-02 13:32 | US ---
DUPLEX ULTRASOUND LEFT LOWER EXTREMITY VEINS INDICATION: Left calf pain. History of previous DVT in the femoral vein on previous ultrasound of 01/02/16. TECHNIQUE: Utilizing 2-D real time, duplex Doppler spectral analysis and color flow imaging, examination of the lower extremity veins, including the common femoral vein, proximal greater saphenous vein, proximal deep femoral vein, proximal femoral vein, mid femoral vein, distal femoral vein, popliteal vein, posterior tibial vein, anterior tibial vein, and peroneal vein, revealed no evidence of deep venous thrombosis or obstruction. Compression views showed no abnormal lack of compression to suggest thrombosis. No evidence of incompetence of the valves was identified. IMPRESSION: Duplex ultrasound, lower extremity veins, shows no evidence of deep venous thrombosis or incompetence. Report was called to Dr. Terrazas at 1120 hours on 09/02/21. [facility]
--- NOTE | 2021-09-02 14:49 | PCM.DCSUM1 ---
Discharge Summary - Hospital Course HPI Initial Comments: Pt came by EMS with LLE x 24h, unable to bear weight. No known injury. History of DVT. 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 He states the pain is deep, from left hip to left ankle. No increased swelling. No redness. No pain with range of motion but only with weight bearing. No fevers, chills, cough, shortness of breath, abdominal pain, diarrhea, dysuria, hematuria or frequency. He had nausea & vomiting in middle of night, feels more secondary to pain, has when he stood up and also when he laid flat for CTA. He lives with who is at home on hospice for breast CA dx 8y ago, now with mets to back and lung. He is on no regular meds, took ASA x 2 yesterday for pain. History of DVT few years ago, had IVC filter removed about 2 years ago. In ER: had CTA with run off as no Doppler ultrasound available, had decreased flow in right superficial femoral artery and right posterior tibial artery, 28 mm dilatation of abdominal aorta, see report for further details. D Dimer was 0.7. WBC normal. Cr 1.2. EKG NSR 72, left axis deviation, no ST-T wave changes. Had incidental finding of nonobstructive kidney stone on left. Diagnosis: Stroke: No - Discharge Data Discharge Date: 09/02/21 Discharge Disposition: Home, Self-Care 01 Condition: Good - Referral to Home Health Primary Care Physician: Caterina Montalvo NP - Discharge Diagnosis/Problem(s) (1) Neural foraminal stenosis of lumbosacral spine SNOMED Code(s): 336497165534 ICD Code: M48.07 - SPINAL STENOSIS, LUMBOSACRAL REGION Status: Acute Problem Details: L4/L5, left moderate (2) Left leg pain SNOMED Code(s): 818980603 ICD Code: M79.605 - PAIN IN LEFT LEG Status: Acute Problem Details: improved (3) Nausea and vomiting SNOMED Code(s): 23545096 ICD Code: R11.2 - NAUSEA WITH VOMITING, UNSPECIFIED Status: Acute Problem Details: improved (4) Ketonuria SNOMED Code(s): 142834773 ICD Code: R82.4 - ACETONURIA Status: Resolved (5) Peripheral vascular disease of lower extremity SNOMED Code(s): 845091891 ICD Code: I73.9 - PERIPHERAL VASCULAR DISEASE, UNSPECIFIED Status: Acute (6) Left nephrolithiasis SNOMED Code(s): 22796952 ICD Code: N20.0 - CALCULUS OF KIDNEY Status: Acute (7) H/O deep venous thrombosis SNOMED Code(s): 959200067 ICD Code: Z86.718 - PERSONAL HISTORY OF OTHER VENOUS THROMBOSIS AND EMBOLISM Status: Chronic - Patient Summary/Data Consults: Consultations 08/31/21 16:16 PT Evaluation and Treatment [CONS] Routine Please Evaluate and Treat. PT Reason for Consult: Ambulation This query below is only for informational purposes and is not editable. Hospital Course: He was admitted, pain controlled with Tylenol and Toradol. Diet advanced from clears to soft. Pain on 09/01 was more located to left ankle, today more left calf. MRI lumbar spine showed moderate neural foraminal stenosis of L4/L5 with degenerative disc changes at multiple levels. Doppler ultrasound was negative for DVT. CTA with run-off in ER showed peripheral artery disease in right leg, pain localized to left leg. No bladder or bowel incontinence. Discharge with Gabapentin 100 mg at bedtime, may get Aspercreme with Lidocaine over the counter to use as needed. Close follow up with Caterina Montalvo on Tuesday, for referral for JAYDEN and refill Gabapentin if needed. 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 Declined antiemetic for home use. - Patient Instructions Diet: Usual Diet as Tolerated Activity: As Tolerated Driving: May Drive Today Showering/Bathing: May Shower Notify Provider of: Fever, Increased Pain, Nausea and/or Vomiting Other/Special Instructions: Follow up with Caterina Montalvo on TuesdaySep 04 for referral for JAYDEN for moderate left L4/L5 neural foraminal stenosis. May also use Aspercreme with Lidocaine creme as needed to left calf. - Discharge Plan *PRESCRIPTION DRUG MONITORING PROGRAM REVIEWED*: Not Applicable *COPY OF PRESCRIPTION DRUG MONITORING REPORT IN PATIENT [place]: Not Applicable Prescriptions/Med Rec: Gabapentin [Neurontin] 100 mg PO BEDTIME #3 cap Home Medications: Home Meds Aspirin 162 mg PO DAILY PRN 08/31/21 [History] Acetaminophen [Tylenol] 650 mg PO Q4H PRN tablet 09/02/21 [Rx] Gabapentin [Neurontin] 100 mg PO BEDTIME #3 cap 09/02/21 [Rx] Oxygen Therapy Mode: Room Air Patient Handouts: Nausea and Vomiting, Adult, [id number], Ankle Pain, Fall Prevention in Hospitals, Adult, Venous Thromboembolism Prevention Forms: ED Department Discharge Referrals: Caterina Montalvo PRODUCT SAFETY TECHNICIAN [Primary Care Provider] - - Discharge Summary/Plan Comment DC Time >30 min.: No Total # of Minutes for Discharge Time: 8 min - General Info Date of Service: 09/02/21 Subjective Update: Tolerating soft diet, no emesis. Walking to the bathroom by himself. Pain now more located to left calf. No swelling or redness. No fevers. DVT in same leg 2016. - Patient Data Vitals - Most Recent: Last Vital Signs Temp 98 F 09/02/21 08:00 Pulse 65 09/02/21 08:00 Resp 18 09/02/21 08:00 BP 109/71 09/02/21 08:00 Pulse Ox 93 L 09/02/21 08:00 Weight - Most Recent: 244 lb Med Orders - Current: Current Medications Discontinued Medications Acetaminophen (Acetaminophen 325 Mg Tab) 650 mg PO Q4H PRN PRN Reason: Pain (Mild 1-3)/fever Diazepam (Diazepam 5 Mg Tab) 5 mg PO ONETIME ONE Stop: 09/01/21 11:01 Last Admin: 09/01/21 10:49 Dose: 5 mg Documented by: Enoxaparin Sodium (Enoxaparin 40 Mg/0.4 Ml Syringe) 40 mg SUBCUT DAILY [facility] Last Admin: 08/31/21 17:43 Dose: 40 mg Documented by: Enoxaparin Sodium (Enoxaparin 40 Mg/0.4 Ml Syringe) 40 mg SUBCUT Q24H [facility] Last Admin: 09/01/21 18:14 Dose: 40 mg Documented by: Sodium Chloride (Normal Saline) 1,000 mls @ 999 mls/hr IV ASDIRECTED [facility] Last Admin: 08/31/21 08:11 Dose: 999 mls/hr Documented by: Sodium Chloride (Normal Saline) 1,000 mls @ 999 mls/hr IV .BOLUS ONE Stop: 08/31/21 10:15 Last Admin: 08/31/21 09:18 Dose: 999 mls/hr Documented by: Sodium Chloride (Normal Saline) 1,000 mls @ 999 mls/hr IV ASDIRECTED [facility] Last Admin: 08/31/21 12:38 Dose: 999 mls/hr Documented by: Ibuprofen (Ibuprofen 400 Mg Tab) 400 mg PO ONETIME ONE Stop: 09/02/21 13:16 Last Admin: 09/02/21 13:17 Dose: 400 mg Documented by: Iopamidol (Iopamidol 755 Mg/Ml 150 Ml Bottle) 150 ml IV ONETIME ONE Stop: 08/31/21 09:46 Last Admin: 08/31/21 10:42 Dose: 125 ml Documented by: Iopamidol (Iopamidol 755 Mg/Ml 100 Ml Bottle) 100 ml IV . DIRECTED ONE Stop: 08/31/21 11:38 Last Admin: 08/31/21 12:04 Dose: 100 ml Documented by: Ketorolac Tromethamine (Ketorolac 30 Mg/Ml Sdv) 30 mg IVPUSH ONETIME ONE Stop: 08/31/21 08:02 Last Admin: 08/31/21 08:12 Dose: 30 mg Documented by: Ketorolac Tromethamine (Ketorolac 30 Mg/Ml Sdv) 30 mg IVPUSH Q6H PRN PRN Reason: Pain (moderate 4-6) Last Admin: 09/02/21 09:20 Dose: 30 mg Documented by: Metoclopramide HCl (Metoclopramide 10 Mg/2 Ml Sdv) 10 mg IVPUSH ONETIME ONE Stop: 08/31/21 09:16 Last Admin: 08/31/21 09:20 Dose: 10 mg Documented by: Morphine Sulfate (Morphine 2 Mg/Ml Syringe) 2 mg IVPUSH Q2H PRN PRN Reason: Pain (severe 7-10) Ondansetron HCl (Ondansetron 4 Mg/2 Ml Sdv) 4 mg IVPUSH ONETIME ONE Stop: 08/31/21 08:02 Last Admin: 08/31/21 08:12 Dose: 4 mg Documented by: Ondansetron HCl (Ondansetron 4 Mg/2 Ml Sdv) 4 mg IVPUSH Q4H PRN PRN Reason: Nausea/Vomiting Last Admin: 09/02/21 12:56 Dose: 4 mg Documented by: Promethazine HCl (Promethazine 25 Mg Tab) 25 mg PO Q6H PRN PRN Reason: nausea, able to take PO Sodium Chloride (Sodium Chloride 0.9% 10 Ml Syringe) 10 ml FLUSH ASDIRECTED PRN PRN Reason: Keep Vein Open Last Admin: 09/01/21 21:28 Dose: 10 ml Documented by: - Exam General: Reports: Alert, Oriented, Cooperative, No Acute Distress Lungs: Reports: Clear to Auscultation, Normal Respiratory Effort Cardiovascular: Reports: Regular Rate, Regular Rhythm GI/Abdominal Exam: Normal Bowel Sounds, Soft, Non-Tender, No Distention Extremities: Normal Inspection, Normal Range of Motion, No Pedal Edema, Normal Capillary Refill, Leg Pain (Deep palpation to posterior left calf). No: Rizwan's Sign
== END 2021-09-02 13:35 | disposition home or self-care (01) ==
LOC: FB.ED 07:28 → SUPCPDRO 07:28 → FB.MS 16:15
PROVIDERS: ADMIT Family Medicine; ATTEND Family Medicine
DX: M79.605 Pain in left leg (principal); I73.9 Peripheral vascular disease, unspecified; R11.2 Nausea with vomiting, unspecified; R82.4 Acetonuria; N20.0 Calculus of kidney; M48.07 Spinal stenosis, lumbosacral region; Z79.82 Long term (current) use of aspirin; Z79.899 Other long term (current) drug therapy; Z20.822 Contact with and (suspected) exposure to COVID-19; Z86.718 Personal history of other venous thrombosis and embolism
CPT/HCPCS: 36415; 72148; 73706-50; 74174; 80053; 81001; 82550; 83036; 84484; 85025; 85379; 85610; 85730; 86140; 93005; 93971-LT; 96372; 96374; 96375; 96376; 97161-GP; 99285-25; A9270-GY; G0378; J1650; J1885; J2405; J2765; J7030; Q9967; U0002

== ENCOUNTER 2021-10-03 03:19 | Observation (INO) | payer MEDICARE, MEDICAID ==
--- NOTE | 2021-10-03 03:30 | EDM.PDOC ---
ED HPI GENERAL MEDICAL PROBLEM - General Stated Complaint: LOWER LEFT QUADRANT PAIN Time Seen by Provider: 10/03/21 03:25 Source of Information: Reports: Patient History Limitations: Reports: No Limitations - History of Present Illness INITIAL COMMENTS - FREE TEXT/NARRATIVE: 66-year-old male who reports on 09/30/2021, he had acute onset of a sharp pain in his left lower quadrant. It lasted for a brief period time and then when away on its own without any intervention. He has had no more pain in the area and told mid afternoon on 10/02/2021 when he developed a recurrence of the pain in his left lower abdomen and left flank. He reports the pain as a sharp and stabbing pain and it has been constant since then. He reports the pain as an 8- 9/10. He has had nausea with multiple episodes of emesis (8 time) and he reports he did have a bowel movement about 3 days ago and it was formed and in small chunks. He has been eating and drinking normally until 3 PM yesterday when he began to have abdominal pain and multiple episodes of vomiting. He has had no dysuria or hematuria. No fevers or chills. He has intermittently had diaphoresis associated with this. He was recently admitted to this hospital for left lower extremity pain and it was felt to be related to a problem with a disc in his back. He is currently taking gabapentin for this and doing physical therapy the pain is in his flank and left lower quadrant. It does not seem to radiate. He states that he cannot find a comfortable position. The pain is a constant pain and it has worsened over time. There are no other associated signs or symptoms. There are no other modifying factors. Onset: Other (05/30/2021) Duration: Constant (Intermittent until 3 PM on 10/02/2021 and has been constant and worsening since then.), Getting Worse Location: Reports: Abdomen Quality: Reports: Sharp Severity: Moderate (to severe) Improves with: Reports: None Worsens with: Reports: None Context: Reports: Other (As above.) Associated Symptoms: Reports: No Other Symptoms (Except as above.) Treatments QUALITY ASSURANCE NURSE: Reports: Other (see below) (Nothing.) - Related Data Allergies Allergy/AdvReac Type Severity Reaction Status Date / Time No Known Allergies Allergy Verified 10/03/21 03:28 Home Meds: Home Meds Gabapentin [Neurontin] 300 mg PO BEDTIME 10/03/21 [History] Past Medical History HEENT History: Reports: Impaired Vision Cardiovascular History: Reports: Blood Clots/VTE/DVT, Other (See Below) Other Cardiovascular History: DVT LEFT CALF 4-5 YEARS AGO (2020) - Past Surgical History GI Surgical History: Reports: Hernia, Inguinal Social & Family History - Tobacco Use Tobacco Use Status *Q: Unknown Ever Used Tobacco (Nonsmoker.) - Caffeine Use Caffeine Use: Reports: Coffee - Alcohol Use Alcohol Use History: No - Living Situation & Occupation Living situation: Reports: 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 Denies: Fever, Chills HEENT: Reports: Glasses. Denies: Sinus Problem Respiratory: Denies: No Symptoms Cardiovascular: Denies: Chest Pain, Edema Endocrine: Denies: High Glucose GI/Abdominal: Reports: Abdominal Pain, Nausea, Vomiting : Reports: Flank Pain, Hematuria. Denies: Dysuria Musculoskeletal: Denies: Neck Pain, Arm Pain Skin: Reports: Diaphoresis, Rash Neurological: Denies: Dizziness, Headache, Numbness Hematologic/Lymphatic: Denies: Easy Bleeding, Easy Bruising ED EXAM, GI/ABD - Physical Exam Exam: See Below Exam Limited By: No Limitations General Appearance: Alert, WD/WN, Moderate Distress Eyes: Bilateral: Normal Appearance, EOMI Ears: Normal External Exam, Hearing Grossly Normal Nose: Normal Inspection, Normal Mucosa, No Blood Throat/Mouth: Normal Lips, Normal Voice, No Airway Compromise Head: Atraumatic, Normocephalic Neck: Normal Inspection, Supple, Non-Tender, Full Range of Motion Respiratory/Chest: No Respiratory Distress, Lungs Clear, Normal Breath Sounds, No Accessory Muscle Use, Chest Non-Tender Cardiovascular: Normal Peripheral Pulses, Regular Rate, Rhythm, No Edema GI/Abdominal Exam: Soft, No Organomegaly, No Mass, Tender (Left lower quadrant) (Male) Exam: No Hernia Extremities: Normal Inspection, Normal Range of Motion Neurological: Alert, Oriented, CN II-XII Intact, Normal Cognition, No Motor/Sensory Deficits Psychiatric: Depressed Mood, Flat Affect Skin Exam: Warm, Dry, Intact, Normal Color, No Rash. No: Wound/Incision Course - Orders/Labs/Meds Orders: Active Orders 24 hr Category Date Time Status Admission Status [Patient Status] [ADT] Routine ADT 10/03/21 05:42 Ordered Patient Status Manage Transfer [TRANSFER] Routine ADT 10/03/21 05:51 Active Height and Weight [RC] UPON Care 10/03/21 05:46 Active Intake and Output [RC] QSHIFT Care 10/03/21 05:48 Active Oxygen Therapy [RC] PRN Care 10/03/21 05:46 Active Pulse Oximetry [RC] CONTINUOUS Care 10/03/21 05:48 Active Up With Assistance [RC] ASDIRECTED Care 10/03/21 05:46 Active VTE/DVT Education [RC] Per Unit Routine Care 10/03/21 05:46 Active Vital Signs [RC] Q4H Care 10/03/21 05:46 Active Nothing per Oral Now Diet [DIET] Diet 10/03/21 Breakfast Active Abdomen Pelvis wo Cont [CT] Stat Exams 10/03/21 04:10 Taken CBC WITH AUTO DIFF [HEME] Stat Lab 10/03/21 03:45 Results CORONAVIRUS COVID-19 GELY [MOLEC] Stat Lab 10/03/21 05:25 Ordered UA W/MICROSCOPIC [URIN] Stat Lab 10/03/21 03:30 Ordered HYDROmorphone [Dilaudid] Med 10/03/21 05:46 Active 0.5 mg IVPUSH Q2H PRN Ondansetron [Zofran] Med 10/03/21 05:46 Active 4 mg IV Q6H PRN Sodium Chloride 0.9% [Normal Saline] 1,000 ml Med 10/03/21 05:13 Active IV .BOLUS Sodium Chloride 0.9% [Normal Saline] 1,000 ml Med 10/03/21 05:15 Active IV ASDIRECTED Resuscitation Status Routine Resus Stat 10/03/21 05:46 Ordered Medication Orders Hydromorphone HCl (Hydromorphone 2 Mg/Ml Sdv) 0.5 mg IVPUSH Q2H PRN PRN Reason: Pain (severe 7-10) Sodium Chloride (Normal Saline) 1,000 mls @ 150 mls/hr IV ASDIRECTED [facility] Sodium Chloride (Normal Saline) 1,000 mls @ 999 mls/hr IV .BOLUS ONE Stop: 10/03/21 06:13 Last Admin: 10/03/21 05:10 Dose: 999 mls/hr Documented by: HERBERT Ondansetron HCl (Ondansetron 4 Mg/2 Ml Sdv) 4 mg IV Q6H PRN PRN Reason: Nausea/Vomiting Labs: Laboratory Tests 10/03/21 10/03/21 10/03/21 Range/Units 03:45 03:45 03:45 WBC 11.8 H (3.2-10.1) x10-3/uL RBC 5.00 (3.90-5.90) x10(6)uL Hgb 15.3 (12.9-17.7) g/dL Hct 45.3 (38.3-50.1) % MCV 90.6 (80.8-98.7) fL MCH 30.6 (27.0-33.3) pg MCHC 33.8 (28.7-35.3) g/dL RDW 13.3 (12.4-15.0) % Plt Count 175 (117-477) x10(3)uL MPV 8.8 (6.7-11.0) fL Add Manual Diff Yes Sodium 139 (135-145) mmol/L Potassium 4.0 (3.5-5.3) mmol/L Chloride 104 (100-110) mmol/L Carbon Dioxide 27 (21-32) mmol/L BUN 23 H (7-18) mg/dL Creatinine 1.6 H (0.70-1.30) mg/dL Est Cr Clr Drug Dosing TNP Estimated GFR (MDRD) 43 L (>60) BUN/Creatinine Ratio 14.4 (9-20) Glucose 186 H (80-116) mg/dL Calcium 8.7 (8.6-10.2) mg/dL C-Reactive Protein 0.8 (0.5-0.9) mg/dL Meds: Medications Generic Name Dose Route Start Last Admin Trade Name Freq PRN Reason Stop Dose Admin Hydromorphone HCl 0.5 mg 10/03/21 05:46 Hydromorphone 2 Mg/Ml Sdv IVPUSH Q2H PRN Pain (severe 7-10) Sodium Chloride 1,000 mls @ 150 mls/hr 10/03/21 05:15 Normal Saline IV ASDIRECTED JEOVANY Sodium Chloride 1,000 mls @ 999 mls/hr 10/03/21 05:13 11/20/21 05:10 Normal Saline IV 10/03/21 06:13 999 mls/hr .BOLUS ONE Administration Ondansetron HCl 4 mg 10/03/21 05:46 Ondansetron 4 Mg/2 Ml Sdv IV Q6H PRN Nausea/Vomiting Discontinued Medications Generic Name Dose Route Start Last Admin Trade Name Freq PRN Reason Stop Dose Admin Hydromorphone HCl 1 mg 10/03/21 04:30 10/03/21 04:47 Hydromorphone 2 Mg/Ml Sdv IVPUSH 10/03/21 04:31 1 mg ONETIME ONE Administration Sodium Chloride 1,000 mls @ 999 mls/hr 10/03/21 03:31 10/03/21 03:45 Normal Saline IV 10/03/21 04:31 999 mls/hr .BOLUS ONE Administration Metoclopramide HCl 10 mg 10/03/21 04:30 10/03/21 04:41 Metoclopramide 10 Mg/2 Ml Sdv IVPUSH 10/03/21 04:31 10 mg ONETIME ONE Administration Morphine Sulfate 4 mg 10/03/21 03:32 10/03/21 03:52 Morphine 4 Mg/Ml Vial IVPUSH 10/03/21 03:33 4 mg ONETIME ONE Administration Ondansetron HCl 4 mg 10/03/21 03:32 10/03/21 03:46 Ondansetron 4 Mg/2 Ml Sdv IVPUSH 10/03/21 03:33 4 mg ONETIME ONE Administration - Radiology Interpretation Free Text/Narrative:: CT scan of the abdomen and pelvis without IV contrast shows an obstructing 7 x 6 x 9 mm stone with left hydronephrosis. There is moderate prostate enlargement. There is a mild fusiform enlargement of the knee in order at 4.1 cm. This was per the [facility] radiologist. - Re-Assessments/Exams Free Text/Narrative Re-Assessment/Exam: 10/03/21 04:35: Patient is back from CT scan and appears to have a large stone i n the proximal left ureter. He is still rating his pain as a 9/10 and he is having more dry heaving. I will give the patient Dilaudid 1 mg and Reglan 10 mg IV to be given. I am awaiting the official results of the CT scan. We'll continue IV fluid hydration with normal saline and we will continue with the patient at NPO status. 10/03/21 05:09: The patient does have had a large left proximal ureteral stone with obstructive uropathy. He has not been able provide us with a urine as yet. He will be given another normal saline 1 L bolus IV. The patient will need urology specially services which are not available at [facility], [place]. I will discuss this with the patient and he will need transfer to a facility with these specially services available. 10/03/21 05:29: The patient is more comfortable now after the Dilaudid. His pain is now down to a 5/10. His nausea has also resolved after the Reglan at this point. I have called and discussed the patient's case with [facility] in [place] (he identifies himself as a patient of [facility]) and also [facility] in [place] in both of these facilities are full and on divert at present. [facility] in [place] did say that they would put him on there hold list and would be able to reach out to us when a bed becomes available to admit the patient. They are unsure if this will be later today or tomorrow. At this point, the patient needs IV fluid hydration and he needs IV pain medication and IV antiemetics. We can provide that at our facility. We still have not collected a urine and I will have the nursing staff do a bladder scan. The patient has been fully vaccinated against Covid with the Moderna vaccine and has also gotten the Moderna booster vaccine. The plan will be to admit the patient to [facility] [place] for now to treat with IV fluid hydration, IV pain medication, IV antiemetics and NPO status. I will place admission orders and Dr. Terrazas will assume care of the patient at 7 AM 10/03/21 05:40: Patient had around 250 mL on the bladder scan. For now we will continue to have the patient attempt to provide us with a urine. Departure - Departure Time of Disposition: 05:45 Disposition: Refer to Observation Condition: Fair Clinical Impression: Renal colic on left side, Obstructive uropathy, Left ureteral calculus, Uncontrolled pain, Renal insufficiency Nausea and vomiting Qualifiers: Vomiting type: unspecified Vomiting Intractability: intractable Qualified Code(s): R11.2 - Nausea with vomiting, unspecified - Discharge Information Referrals: Caterina Montalvo, LIBRARY MANAGER [Primary Care Provider] - - My Orders Last 24 Hours: My Active Orders 10/03/21 03:30 UA W/MICROSCOPIC [URIN] Stat 10/03/21 03:45 CBC WITH AUTO DIFF [HEME] Stat 10/03/21 04:10 Abdomen Pelvis wo Cont [CT] Stat 10/03/21 05:13 Sodium Chloride 0.9% [Normal Saline] 1,000 ml IV .BOLUS 10/03/21 05:15 Sodium Chloride 0.9% [Normal Saline] 1,000 ml IV ASDIRECTED 10/03/21 05:25 CORONAVIRUS COVID-19 GELY [MOLEC] Stat 10/03/21 05:42 Admission Status [Patient Status] [ADT] Routine 10/03/21 05:46 Height and Weight [RC] UPON Oxygen Therapy [RC] PRN Up With Assistance [RC] ASDIRECTED VTE/DVT Education [RC] Per Unit Routine Vital Signs [RC] Q4H HYDROmorphone [Dilaudid] 0.5 mg IVPUSH Q2H PRN Ondansetron [Zofran] 4 mg IV Q6H PRN Resuscitation Status Routine 10/03/21 05:48 Intake and Output [RC] QSHIFT Pulse Oximetry [RC] CONTINUOUS 10/03/21 05:51 Patient Status Manage Transfer [TRANSFER] Routine 10/03/21 Breakfast Nothing per Oral Now Diet [DIET] - Assessment/Plan Last 24 Hours: My Active Orders 10/03/21 03:30 UA W/MICROSCOPIC [URIN] Stat 10/03/21 03:45 CBC WITH AUTO DIFF [HEME] Stat 10/03/21 04:10 Abdomen Pelvis wo Cont [CT] Stat 10/03/21 05:13 Sodium Chloride 0.9% [Normal Saline] 1,000 ml IV .BOLUS 10/03/21 05:15 Sodium Chloride 0.9% [Normal Saline] 1,000 ml IV ASDIRECTED 10/03/21 05:25 CORONAVIRUS COVID-19 GELY [MOLEC] Stat 10/03/21 05:42 Admission Status [Patient Status] [ADT] Routine 10/03/21 05:46 Height and Weight [RC] UPON Oxygen Therapy [RC] PRN Up With Assistance [RC] ASDIRECTED VTE/DVT Education [RC] Per Unit Routine Vital Signs [RC] Q4H HYDROmorphone [Dilaudid] 0.5 mg IVPUSH Q2H PRN Ondansetron [Zofran] 4 mg IV Q6H PRN Resuscitation Status Routine 10/03/21 05:48 Intake and Output [RC] QSHIFT Pulse Oximetry [RC] CONTINUOUS 10/03/21 05:51 Patient Status Manage Transfer [TRANSFER] Routine 10/03/21 Breakfast Nothing per Oral Now Diet [DIET]
[2021-10-03] MEDS ORDERED: Sodium Chloride 0.9% 1,000 ML IV ONE ×2 (03:31→05:13)
[2021-10-03] MEDS ORDERED: Morphine 4 MG/ML VIAL IVPUSH ONE (03:32)
[2021-10-03] MEDS ORDERED: Ondansetron 4 MG/2 ML SDV IVPUSH ONE (03:32)
[2021-10-03] MEDS ORDERED: Metoclopramide 10 MG/2 ML SDV IVPUSH ONE (04:30)
[2021-10-03] MEDS ORDERED: HYDROmorphone 2 MG/ML SDV IVPUSH ONE (04:30)
[2021-10-03] MEDS ORDERED: HYDROmorphone 2 MG/ML SDV IVPUSH PRN (05:46)
[2021-10-03] MEDS ORDERED: Ondansetron 4 MG/2 ML SDV IV PRN (05:46)
[2021-10-03] MEDS: Sodium Chloride 0.9% 1,000 ML IV SCH ×2 (06:10→13:00)
[2021-10-03] MEDS ORDERED: Promethazine 25 MG Tab PO PRN (09:37)
[2021-10-03] MEDS: HYDROmorphone 2 MG/ML SDV IVPUSH PRN ×2 (10:03→18:51)
--- NOTE | 2021-10-03 16:50 | PCM.HP.2 ---
H&P History of Present Illness - General Date of Service: 10/03/21 Admit Problem/Dx: Admission Diagnosis/Problem Admission Diagnosis/Problem Renal colic on left side Source of Information: Patient, Provider History Limitations: Reports: No Limitations - History of Present Illness Initial Comments - Free Text/Narative: Rylan started having sharp pain on left side, lasted only brief period without interventions. He started having pain in same area yesterday afternoon, this namita e in left lower abdomen and left flank. He describes pain as sharp & stabbing, constant in nature. Rates pain 9/10. He has had nausea with vomiting(8 times yesterday). Last BM was 3 days ago, formed and very hard. He had been eating normally up until yesterday afternoon. NO fevers or chills. Intermittent diaphoresis with episode of pain. He discussed with ER provider that he could not find a position of comfort. He was admitted recently for left leg pain, had MRI lumbar spine showed herniated disc, discharged with Gabapentin and doing physical therapy. He had negative Doppler ultrasound at the time, DVT was ruled out. In ER: CT abdomen/pelvis showed 7 x 6 x 9 mm ureteral stone with hydronephrosis on the left. He sees Caterina Montalvo at [facility] so ER called [facility] for transfer but no availability, also tried [facility] with also no beds available. Pt was admitted for pain control and IVF. WBC 11.8, Cr 1.6. Received 2 liters of NS in ER, Morphine 4 mg, Zofran 4 mg with no relief in pain. Dilaudid 1 mg and Reglan given and had improvement in pain. Dilaudid 1 mg gave pain relief for approximately 4 hours. Left Flank Pain Score (Numeric/FACES): 3 - Related Data Allergies/Adverse Reactions: Allergies Allergy/AdvReac Type Severity Reaction Status Date / Time No Known Allergies Allergy Verified 10/03/21 03:28 Home Medications: Home Meds Gabapentin [Neurontin] 300 mg PO BEDTIME 10/03/21 [History] Past Medical History HEENT History: Reports: Impaired Vision Cardiovascular History: Reports: Blood Clots/VTE/DVT, Other (See Below) Other Cardiovascular History: History of DVT left calf. On 10/03/21 stated he no longer takes ASA. Respiratory History: Reports: None Gastrointestinal History: Reports: None Genitourinary History: Reports: Renal Calculus Musculoskeletal History: Reports: Other (See Below) Other Musculoskeletal History: Back pain...he was told it was a "pinched nerve". Neurological History: Reports: None Psychiatric History: Reports: None Endocrine/Metabolic History: Reports: None Oncologic (Cancer) History: Reports: None Dermatologic History: Reports: None - Infectious Disease History Infectious Disease History: Reports: None - Past Surgical History Head Surgeries/Procedures: Reports: None HEENT Surgical History: Reports: None Respiratory Surgical History: Reports: None GI Surgical History: Reports: Hernia, Inguinal Male Surgical History: Reports: None Endocrine Surgical History: Reports: None Neurological Surgical History: Reports: None Musculoskeletal Surgical History: Reports: None Oncologic Surgical History: Reports: None Dermatological Surgical History: Reports: None Social & Family History - Family History Family Medical History: No Pertinent Family History - Tobacco Use Tobacco Use Status *Q: Never Tobacco User Second Hand Smoke Exposure: No - Caffeine Use Caffeine Use: Reports: Coffee Other Caffeine Use: 2 cups daily - Recreational Drug Use Recreational Drug Use: No - Living Situation & Occupation Living situation: Reports: 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 Exam - Exam Exam: See Below - Vital Signs Vital Signs: Last Vital Signs Temp 99.2 F 10/03/21 16:25 Pulse 76 10/03/21 16:25 Resp 18 10/03/21 16:25 BP 104/62 10/03/21 16:25 Pulse Ox 93 L 10/03/21 16:25 Weight: 244 lb 9 oz - Exam General: Alert, Oriented, Cooperative. No: Mild Distress HEENT: PERRLA, Conjunctiva Clear, EOMI, Hearing Intact, Mucosa Moist & [place] Neck: Trachea Midline Lungs: Clear to Auscultation, Normal Respiratory Effort Cardiovascular: Regular Rate, Regular Rhythm GI/Abdominal Exam: Normal Bowel Sounds, Soft, No Distention, Guarding, Tender (LLQ) (Male) Exam: Deferred Rectal (Males) Exam: Deferred Back Exam: CVA Tenderness (L) Extremities: No Pedal Edema, Normal Capillary Refill Peripheral Pulses: 2+: Radial (L), Radial (R), Posterior Tibial (L), Posterior Tibial (R), Dorsalis Pedis (L), Dorsalis Pedis (R) Skin: Warm, Dry, Intact Neurological: Cranial Nerves Intact, Normal Speech, Normal Tone - Patient Data Lab Results Last 24 hrs: Laboratory Results - last 24 hr 10/03/21 10/03/21 10/03/21 Range/Units 03:45 03:45 03:45 WBC 11.8 H (3.2-10.1) x10-3/uL RBC 5.00 (3.90-5.90) x10(6)uL Hgb 15.3 (12.9-17.7) g/dL Hct 45.3 (38.3-50.1) % MCV 90.6 (80.8-98.7) fL MCH 30.6 (27.0-33.3) pg MCHC 33.8 (28.7-35.3) g/dL RDW 13.3 (12.4-15.0) % Plt Count 175 (117-477) x10(3)uL MPV 8.8 (6.7-11.0) fL Add Manual Diff Yes Neutrophils % (Manual) 79 (46-82) % Band Neutrophils % 4 (0-6) % Lymphocytes % (Manual) 11 L (13-37) % Monocytes % (Manual) 6 (4-12) % Sodium 139 (135-145) mmol/L Potassium 4.0 (3.5-5.3) mmol/L Chloride 104 (100-110) mmol/L Carbon Dioxide 27 (21-32) mmol/L BUN 23 H (7-18) mg/dL Creatinine 1.6 H (0.70-1.30) mg/dL Est Cr Clr Drug Dosing TNP Estimated GFR (MDRD) 43 L (>60) BUN/Creatinine Ratio 14.4 (9-20) Glucose 186 H (80-116) mg/dL Calcium 8.7 (8.6-10.2) mg/dL C-Reactive Protein 0.8 (0.5-0.9) mg/dL Urine Color (YELLOW) Urine Appearance (CLEAR) Urine pH (5.0-6.5) Ur Specific [place] (1.010-1.025) Urine Protein (NEGATIVE) mg/dL Urine Glucose (UA) (NORMAL) mg/dL Urine Ketones (NEGATIVE) mg/dL Urine Occult Blood (NEGATIVE) Urine Nitrite (NEGATIVE) Urine Bilirubin (NEGATIVE) Urine Urobilinogen (NEGATIVE) mg/dL Ur Leukocyte Esterase (NEGATIVE) Urine RBC (0-5) Urine WBC (0-5) Ur Squamous Epith Cells (NS,R,O) Urine Bacteria (NS) SARS-CoV-2 RNA (GELY) (NEGATIVE) 10/03/21 10/03/21 Range/Units 05:40 05:40 WBC (3.2-10.1) x10-3/uL RBC (3.90-5.90) x10(6)uL Hgb (12.9-17.7) g/dL Hct (38.3-50.1) % MCV (80.8-98.7) fL MCH (27.0-33.3) pg MCHC (28.7-35.3) g/dL RDW (12.4-15.0) % Plt Count (117-477) x10(3)uL MPV (6.7-11.0) fL Add Manual Diff Neutrophils % (Manual) (46-82) % Band Neutrophils % (0-6) % Lymphocytes % (Manual) (13-37) % Monocytes % (Manual) (4-12) % Sodium (135-145) mmol/L Potassium (3.5-5.3) mmol/L Chloride (100-110) mmol/L Carbon Dioxide (21-32) mmol/L BUN (7-18) mg/dL Creatinine (0.70-1.30) mg/dL Est Cr Clr Drug Dosing Estimated GFR (MDRD) (>60) BUN/Creatinine Ratio (9-20) Glucose (80-116) mg/dL Calcium (8.6-10.2) mg/dL C-Reactive Protein (0.5-0.9) mg/dL Urine Color Yellow (YELLOW) Urine Appearance Slightly cloudy (CLEAR) Urine pH 5.0 (5.0-6.5) Ur Specific [place] 1.025 (1.010-1.025) Urine Protein Negative (NEGATIVE) mg/dL Urine Glucose (UA) Normal (NORMAL) mg/dL Urine Ketones 15 H (NEGATIVE) mg/dL Urine Occult Blood Large H (NEGATIVE) Urine Nitrite Negative (NEGATIVE) Urine Bilirubin Negative (NEGATIVE) Urine Urobilinogen Normal (NEGATIVE) mg/dL Ur Leukocyte Esterase Negative (NEGATIVE) Urine RBC 5-10 H (0-5) Urine WBC 0-5 (0-5) Ur Squamous Epith Cells Occasional (NS,R,O) Urine Bacteria Few H (NS) SARS-CoV-2 RNA (GELY) Negative (NEGATIVE) Result Diagrams: 10/03/21 03:45 10/03/21 03:45 Sepsis Event Note - Evaluation Sepsis Screening Result: No Definite Risk - Focused Exam Vital Signs: Vital Signs Temp Pulse Pulse Resp BP Pulse Ox 10/03/21 16:25 99.2 F 76 18 104/62 93 L 10/03/21 11:30 98.1 F 66 18 104/57 L 95 10/03/21 08:29 97.7 F 76 16 110/75 92 L 10/03/21 07:20 92 L 10/03/21 07:15 16 95 10/03/21 06:40 97.3 F 75 14 114/64 90 L *Q Meaningful Use (ADM) - VTE Risk Assess *Q Each Risk Factor Represents 1 Point: Obesity ( BMI > 25 kg/m2) Total Score 1 Point Risk Factors: 1 Each Risk Factor Represents 2 Points: Age 60 - 74 Years Total Score 2 Point Risk Factors: 2 Each Risk Factor Represents 3 Points: None Total Score 3 Point Risk Factors: 0 Each Risk Factor Represents 5 Points: None Total Score 5 Point Risk Factors: 0 Venous Thromboembolism Risk Factor Score *Q: 3 - Problem List (1) Left ureteral calculus SNOMED Code(s): 61388621 ICD Code: N20.1 - CALCULUS OF URETER Status: Acute Current Visit: Yes Problem Details: 7 x 6 x 9 mm stone on left (2) Nausea and vomiting SNOMED Code(s): 64421483 ICD Code: R11.2 - NAUSEA WITH VOMITING, UNSPECIFIED Status: Acute Current Visit: Yes Problem Details: Qualifiers: Vomiting type: unspecified Vomiting Intractability: intractable Qualified Code(s): R11.2 - Nausea with vomiting, unspecified (3) Obstructive uropathy SNOMED Code(s): 9186105 ICD Code: N13.9 - OBSTRUCTIVE AND REFLUX UROPATHY, UNSPECIFIED Status: Acute Current Visit: Yes (4) Renal insufficiency SNOMED Code(s): 932405364, 459871088 ICD Code: N28.9 - DISORDER OF KIDNEY AND URETER, UNSPECIFIED Status: Acute Current Visit: Yes Problem Details: Cr 1.6 (5) Uncontrolled pain SNOMED Code(s): 60413012484046000 ICD Code: R52 - PAIN, UNSPECIFIED Status: Acute Current Visit: Yes (6) Dehydration SNOMED Code(s): 22248717 ICD Code: E86.0 - DEHYDRATION Status: Acute Current Visit: No Problem List Initiated/Reviewed/Updated: Yes Orders Last 24hrs: Active Orders 24 hr Category Date Time Status Admission Status [Patient Status] [ADT] Routine ADT 10/03/21 05:42 Active Intake and Output [RC] QSHIFT Care 10/03/21 05:48 Active Oxygen Therapy [RC] PRN Care 10/03/21 05:46 Active Up With Assistance [RC] ASDIRECTED Care 10/03/21 05:46 Active VTE/DVT Education [RC] Per Unit Routine Care 10/03/21 05:46 Active Vital Signs [RC] Q4H Care 10/03/21 05:46 Active NPO [Nothing Per Oral Diet] [DIET] Diet 10/03/21 Dinner Ordered Abdomen Pelvis wo Cont [CT] Stat Exams 10/03/21 04:10 Taken HYDROmorphone [Dilaudid] Med 10/03/21 09:40 Active 1 mg IVPUSH Q4H PRN Ondansetron [Zofran] Med 10/03/21 05:46 Active 4 mg IV Q6H PRN Promethazine [Phenergan] Med 10/03/21 09:37 Active 25 mg PO Q4H PRN Sodium Chloride 0.9% [Normal Saline] 1,000 ml Med 10/03/21 05:15 Active IV ASDIRECTED Resuscitation Status Routine Resus Stat 10/03/21 05:46 Ordered Medication Orders Hydromorphone HCl (Hydromorphone 2 Mg/Ml Sdv) 1 mg IVPUSH Q4H PRN PRN Reason: Pain (severe 7-10) Last Admin: 10/03/21 10:03 Dose: 1 mg Documented by: STELLA Sodium Chloride (Normal Saline) 1,000 mls @ 150 mls/hr IV ASDIRECTED JEOVANY Last Admin: 10/03/21 13:00 Dose: 150 mls/hr Documented by: Infusion: 10/03/21 12:51 Dose: 150 mls/hr Documented by: Admin: 10/03/21 06:10 Dose: 150 mls/hr Documented by: HERBERT Ondansetron HCl (Ondansetron 4 Mg/2 Ml Sdv) 4 mg IV Q6H PRN PRN Reason: Nausea/Vomiting Promethazine HCl (Promethazine 25 Mg Tab) 25 mg PO Q4H PRN PRN Reason: Nausea/Vomiting Last Admin: 10/03/21 10:03 Dose: 25 mg Documented by: STELLA Assessment/Plan Comment:: 1. Admit for observation for left ureteral stone, obstructive uropathy, dehydration, intractable nausea & vomiting. 2. Left ureteral stone: Dilaudid 1 mg IV q4h as needed, Zofran 4 mg IV q4h as needed. Phenergan 25 mg po q4h as needed nausea. Tried clear liquids this morning, had 2 emesis after drinking some apple juice & water. Switched back to NPO except ice chips & medications. Awaiting bed placement in [place] for urology for obstructive uropathy with large stone. 3. KATIE/dehydration: NS at 150 ml/hr. Tamsulosin 0.4 mg hs. Cr 1.6. Repeat BMP in am. 4. Diet: NPO except ice chips & meds. 5. Activity: up with assistance. 6. DVT prophylaxis: Teds, Lovenox 40 mg SQ q24h. 7. CODE STATUS: FULL. 8. Disposition: once we can get bed available in [place] either at [place] or [facility] as we do not have urology at our facility to retrieve stone or place s tents. - Mortality Measure Prognosis:: Good
--- NOTE | 2021-10-03 20:01 | PCM.DCSUM1 ---
Discharge Summary - Hospital Course HPI Initial Comments: Rylan started having sharp pain on left side, lasted only brief period without interventions. He started having pain in same area yesterday afternoon, this time in left lower abdomen and left flank. He describes pain as sharp & stabbing, constant in nature. Rates pain 9/10. He has had nausea with vomiting(8 times yesterday). Last BM was 3 days ago, formed and very hard. He had been eating normally up until yesterday afternoon. NO fevers or chills. Intermittent diaphoresis with episode of pain. He discussed with ER provider that he could not find a position of comfort. He was admitted recently for left leg pain, had MRI lumbar spine showed herniated disc, discharged with Gabapentin and doing physical therapy. He had negative Doppler ultrasound at the time, DVT was ruled out. In ER: CT abdomen/pelvis showed 7 x 6 x 9 mm ureteral stone with hydronephrosis on the left. He sees Caterina Montalvo at [facility] so ER called [facility] for transfer but no availability, also tried [facility] with also no beds available. Pt was admitted for pain control and IVF. WBC 11.8, Cr 1.6. Received 2 liters of NS in ER, Morphine 4 mg, Zofran 4 mg with no relief in pain. Dilaudid 1 mg and Reglan given and had improvement in pain. Dilaudid 1 mg gave pain relief for approximately 4 hours. Diagnosis: Stroke: No - Discharge Data Discharge Date: 10/03/21 Discharge Disposition: DC/Tfer to Acute Hospital 02 Condition: Good - Referral to Home Health Primary Care Physician: Caterina Montalvo NP - Discharge Diagnosis/Problem(s) (1) Left ureteral calculus SNOMED Code(s): 19706536 ICD Code: N20.1 - CALCULUS OF URETER Status: Acute Current Visit: Yes Problem Details: 7 x 6 x 9 mm stone on left (2) Nausea and vomiting SNOMED Code(s): 45399935 ICD Code: R11.2 - NAUSEA WITH VOMITING, UNSPECIFIED Status: Acute Current Visit: Yes Problem Details: Qualifiers: Vomiting type: unspecified Vomiting Intractability: intractable Qualified Code(s): R11.2 - Nausea with vomiting, unspecified (3) Obstructive uropathy SNOMED Code(s): 1298372 ICD Code: N13.9 - OBSTRUCTIVE AND REFLUX UROPATHY, UNSPECIFIED Status: Acute Current Visit: Yes (4) Renal insufficiency SNOMED Code(s): 874197710, 905183984 ICD Code: N28.9 - DISORDER OF KIDNEY AND URETER, UNSPECIFIED Status: Acute Current Visit: Yes Problem Details: Cr 1.6 (5) Uncontrolled pain SNOMED Code(s): 19006844149566935 ICD Code: R52 - PAIN, UNSPECIFIED Status: Acute Current Visit: Yes (6) Dehydration SNOMED Code(s): 72726569 ICD Code: E86.0 - DEHYDRATION Status: Acute Current Visit: No - Patient Summary/Data Hospital Course: Was admitted for pain control while awaiting a bed in [place], advanced his diet this morning since we didn't know when he would be going to [place]. He had apple juice and some water but had emesis of 300 ml. Dilaudid 1 mg IV q4h has controlled pain. He had Zofran & Phenergan as needed nausea. He was switched back to NPO with ice chips & meds and had another emesis this afternoon. Pt states his pain is controlled. [facility] called back this evening, they had bed available, spoke with Jimenez Gutiérrez MD Urology who accepted patient in transfer, make NPO and will have procedure in morning for removal of 9 mm left ureteral stone. WBC 11.8, Cr 1.6. Covid negative. CT abdomen/pelvis sent via PACs to [facility]. He did not get antibiotics in ER this morning. - Patient Instructions Diet: NPO Other/Special Instructions: Transfer to [facility] for urology services. Dr Jimenez Gutiérrez accepted for urology. - Discharge Plan *PRESCRIPTION DRUG MONITORING PROGRAM REVIEWED*: Not Applicable *COPY OF PRESCRIPTION DRUG MONITORING REPORT IN PATIENT [place]: Not Applicable Home Medications: Home Meds Gabapentin [Neurontin] 300 mg PO BEDTIME 10/03/21 [History] HYDROmorphone [Dilaudid] 1 mg IVPUSH Q4H PRN sdv 10/03/21 [Rx] Ondansetron [Zofran] 4 mg IV Q6H PRN vial 10/03/21 [Rx] Sodium Chloride 0.9% [Normal Saline] 150 ml IV ASDIRECTED bag 10/03/21 [Rx] Oxygen Therapy Mode: Room Air Referrals: Caterina Montalvo NP [Primary Care Provider] - - Discharge Summary/Plan Comment DC Time >30 min.: No Total # of Minutes for Discharge Time: 15 min - Patient Data Vitals - Most Recent: Last Vital Signs Temp 99.2 F 10/03/21 16:25 Pulse 76 10/03/21 16:25 Resp 18 10/03/21 16:25 BP 104/62 10/03/21 16:25 Pulse Ox 93 L 10/03/21 16:25 Weight - Most Recent: 244 lb 9 oz I&O - Last 24 hours: Intake & Output 10/03/21 10/03/21 10/03/21 06:59 14:59 22:59 Intake Total 1999 500 970 Output Total 1200 Balance 1999 -700 970 Lab Results - Last 24 hrs: Laboratory Results - last 24 hr 10/03/21 10/03/21 10/03/21 Range/Units 03:45 03:45 03:45 WBC 11.8 H (3.2-10.1) x10-3/uL RBC 5.00 (3.90-5.90) x10(6)uL Hgb 15.3 (12.9-17.7) g/dL Hct 45.3 (38.3-50.1) % MCV 90.6 (80.8-98.7) fL MCH 30.6 (27.0-33.3) pg MCHC 33.8 (28.7-35.3) g/dL RDW 13.3 (12.4-15.0) % Plt Count 175 (117-477) x10(3)uL MPV 8.8 (6.7-11.0) fL Add Manual Diff Yes Neutrophils % (Manual) 79 (46-82) % Band Neutrophils % 4 (0-6) % Lymphocytes % (Manual) 11 L (13-37) % Monocytes % (Manual) 6 (4-12) % Sodium 139 (135-145) mmol/L Potassium 4.0 (3.5-5.3) mmol/L Chloride 104 (100-110) mmol/L Carbon Dioxide 27 (21-32) mmol/L BUN 23 H (7-18) mg/dL Creatinine 1.6 H (0.70-1.30) mg/dL Est Cr Clr Drug Dosing TNP Estimated GFR (MDRD) 43 L (>60) BUN/Creatinine Ratio 14.4 (9-20) Glucose 186 H (80-116) mg/dL Calcium 8.7 (8.6-10.2) mg/dL C-Reactive Protein 0.8 (0.5-0.9) mg/dL Urine Color (YELLOW) Urine Appearance (CLEAR) Urine pH (5.0-6.5) Ur Specific [place] (1.010-1.025) Urine Protein (NEGATIVE) mg/dL Urine Glucose (UA) (NORMAL) mg/dL Urine Ketones (NEGATIVE) mg/dL Urine Occult Blood (NEGATIVE) Urine Nitrite (NEGATIVE) Urine Bilirubin (NEGATIVE) Urine Urobilinogen (NEGATIVE) mg/dL Ur Leukocyte Esterase (NEGATIVE) Urine RBC (0-5) Urine WBC (0-5) Ur Squamous Epith Cells (NS,R,O) Urine Bacteria (NS) SARS-CoV-2 RNA (GELY) (NEGATIVE) 10/03/21 10/03/21 Range/Units 05:40 05:40 WBC (3.2-10.1) x10-3/uL RBC (3.90-5.90) x10(6)uL Hgb (12.9-17.7) g/dL Hct (38.3-50.1) % MCV (80.8-98.7) fL MCH (27.0-33.3) pg MCHC (28.7-35.3) g/dL RDW (12.4-15.0) % Plt Count (117-477) x10(3)uL MPV (6.7-11.0) fL Add Manual Diff Neutrophils % (Manual) (46-82) % Band Neutrophils % (0-6) % Lymphocytes % (Manual) (13-37) % Monocytes % (Manual) (4-12) % Sodium (135-145) mmol/L Potassium (3.5-5.3) mmol/L Chloride (100-110) mmol/L Carbon Dioxide (21-32) mmol/L BUN (7-18) mg/dL Creatinine (0.70-1.30) mg/dL Est Cr Clr Drug Dosing Estimated GFR (MDRD) (>60) BUN/Creatinine Ratio (9-20) Glucose (80-116) mg/dL Calcium (8.6-10.2) mg/dL C-Reactive Protein (0.5-0.9) mg/dL Urine Color Yellow (YELLOW) Urine Appearance Slightly cloudy (CLEAR) Urine pH 5.0 (5.0-6.5) Ur Specific [place] 1.025 (1.010-1.025) Urine Protein Negative (NEGATIVE) mg/dL Urine Glucose (UA) Normal (NORMAL) mg/dL Urine Ketones 15 H (NEGATIVE) mg/dL Urine Occult Blood Large H (NEGATIVE) Urine Nitrite Negative (NEGATIVE) Urine Bilirubin Negative (NEGATIVE) Urine Urobilinogen Normal (NEGATIVE) mg/dL Ur Leukocyte Esterase Negative (NEGATIVE) Urine RBC 5-10 H (0-5) Urine WBC 0-5 (0-5) Ur Squamous Epith Cells Occasional (NS,R,O) Urine Bacteria Few H (NS) SARS-CoV-2 RNA (GELY) Negative (NEGATIVE) Med Orders - Current: Current Medications Hydromorphone HCl (Hydromorphone 2 Mg/Ml Sdv) 1 mg IVPUSH Q4H PRN PRN Reason: Pain (severe 7-10) Last Admin: 10/03/21 18:51 Dose: 1 mg Documented by: Sodium Chloride (Normal Saline) 1,000 mls @ 150 mls/hr IV ASDIRECTED [facility] Last Admin: 10/03/21 13:00 Dose: 150 mls/hr Documented by: Ondansetron HCl (Ondansetron 4 Mg/2 Ml Sdv) 4 mg IV Q6H PRN PRN Reason: Nausea/Vomiting Last Admin: 10/03/21 18:53 Dose: 4 mg Documented by: Promethazine HCl (Promethazine 25 Mg Tab) 25 mg PO Q4H PRN PRN Reason: Nausea/Vomiting Last Admin: 10/03/21 10:03 Dose: 25 mg Documented by: Discontinued Medications Hydromorphone HCl (Hydromorphone 2 Mg/Ml Sdv) 1 mg IVPUSH ONETIME ONE Stop: 10/03/21 04:31 Last Admin: 10/03/21 04:47 Dose: 1 mg Documented by: Hydromorphone HCl (Hydromorphone 2 Mg/Ml Sdv) 0.5 mg IVPUSH Q2H PRN PRN Reason: Pain (severe 7-10) Sodium Chloride (Normal Saline) 1,000 mls @ 999 mls/hr IV .BOLUS ONE Stop: 10/03/21 04:31 Last Admin: 10/03/21 03:45 Dose: 999 mls/hr Documented by: Sodium Chloride (Normal Saline) 1,000 mls @ 999 mls/hr IV .BOLUS ONE Stop: 10/03/21 06:13 Last Admin: 10/03/21 05:10 Dose: 999 mls/hr Documented by: Metoclopramide HCl (Metoclopramide 10 Mg/2 Ml Sdv) 10 mg IVPUSH ONETIME ONE Stop: 10/03/21 04:31 Last Admin: 10/03/21 04:41 Dose: 10 mg Documented by: Morphine Sulfate (Morphine 4 Mg/Ml Vial) 4 mg IVPUSH ONETIME ONE Stop: 10/03/21 03:33 Last Admin: 10/03/21 03:52 Dose: 4 mg Documented by: Ondansetron HCl (Ondansetron 4 Mg/2 Ml Sdv) 4 mg IVPUSH ONETIME ONE Stop: 10/03/21 03:33 Last Admin: 10/03/21 03:46 Dose: 4 mg Documented by:
== END 2021-10-03 21:45 ==
LOC: FB.ED 03:19 → FB.MS 05:42
PROVIDERS: ADMIT Emergency Medicine; ATTEND Family Medicine
DX: N13.2 Hydronephrosis with renal and ureteral calculous obstruction (principal); N13.9 Obstructive and reflux uropathy, unspecified; N28.9 Disorder of kidney and ureter, unspecified; E86.0 Dehydration; Z20.822 Contact with and (suspected) exposure to COVID-19
CPT/HCPCS: 36415; 74176; 80048; 81001; 85025; 86140; 96374; 96375; 96376; 99285; A9270; G0378; J1170; J2270; J2405; J2765; J7030; U0002